=== PATIENT | male | born 1970 | race American Indian/Alaskan Native ===

== ENCOUNTER 2016-08-26 16:06 | Emergency (ER) | payer MEDICARE ==
[2016-08-26] MEDS ORDERED: CATAPRES PO ONE ×2 (16:44→16:51)
--- NOTE | 2016-08-26 19:50 | Emergency Department Report ---
HPI - General Chief Complaint: Skin Rash Time Seen by Provider: 08/26/16 19:27 - HPI HPI: Patient is a 46-year-old male presents to ED complaining of the aching and rash on his left upper shoulder back region 2 weeks. Patient states about 2 weeks ago he went fishing. Patient states after returning home he found about 3 ticks on his body. Patient describes take as bad small takes which she removed from his body while he was in the shower. Patient states the other 2 sides were fine but the one on his back as presented aggressively gotten bigger, itches and read. She denies fevers/chills/nausea/vomiting/abdominal pain/chest pain/difficulty breathing or any other problems ED Past Medical Hx - Past Medical History Hx Hypertension: Yes - Surgical History Additional Surgical History: left femur fx/right lower fx - Social History Smoking Status: Never Smoker Substance Use Type: None - Medications Home Medications: Home Medications Medication Instructions Recorded Confirmed Last Taken Type Doxycycline [Vibramycin CAP] 100 mg PO Q12HR #14 capsule 08/26/16 Unknown Rx Triamcinolone 0.5% [Kenalog 0.5% 1 applic TP TID #1 tube 08/26/16 Unknown Rx CREAM] hydrOXYzine HCL [Atarax] 25 mg PO QHS PRN #15 tablet 08/26/16 Unknown Rx predniSONE [Deltasone] 5 mg PO QDAY #4 tab 08/26/16 Unknown Rx ED Review of Systems ROS: Stated complaint: POSSIBLE TICK BITE Other details as noted in HPI Constitutional: denies: chills, fever Eyes: denies: eye pain, eye discharge, vision change ENT: denies: ear pain, throat pain Respiratory: denies: cough, shortness of breath, wheezing Cardiovascular: denies: chest pain, palpitations Endocrine: no symptoms reported Gastrointestinal: denies: abdominal pain, nausea, diarrhea Genitourinary: denies: urgency, dysuria Musculoskeletal: denies: back pain, joint swelling, arthralgia Skin: denies: rash, lesions Neurological: denies: headache, weakness, paresthesias Psychiatric: denies: anxiety, depression Hematological/Lymphatic: denies: easy bleeding, easy bruising Physical Exam - Physical Exam Vital Signs: Vital Signs 08/26/16 08/26/16 16:40 16:50 Temperature 97.9 F Pulse Rate 57 L 57 L Respiratory 18 Rate Blood Pressure 193/118 193/118 O2 Sat by Pulse 100 Oximetry Physical Exam: GENERAL: Alert and oriented x3, no apparent distress, Normal Gait, atraumatic. NOSE: Nose symetrical, Nontender,Nares appeared normal. MOUTH:Mouth is well hydrated and without lesions. Tonsils nonerythematous or swollen, Uvula midline, Tongue not elevated. Mucous membranes are moist. Posterior pharynx clear, no exudate or lesions. Patent airways. NECK: Supple. Non edematous, No carotid bruits. No lymphadenopathy or thyromegaly. No C-spine tenderness LUNGS: Symetrical with respiration, No wheezing, no rales or crackles, CTAB. HEART: S1, S2 present, regular rate and rhythm without murmur, no rubs, no gallops. ABDOMEN: No organomegaly was noted,Positive bowel sounds, soft, and non- distended. . Nontender to palpation on all Quadrants, NO CVA tenderness. SKIN: Warm and dry, erythematous, raised, 8-10 cm in diameter lesion with the insect bite in the middle of the lesion. Mildly tender to palpation not fluctuant, No other lesions, No ulceration or induration present. ED Course Vital Signs 08/26/16 08/26/16 16:40 16:50 Temperature 97.9 F Pulse Rate 57 L 57 L Respiratory 18 Rate Blood Pressure 193/118 193/118 O2 Sat by Pulse 100 Oximetry ED Medical Decision Making - Medical Decision Making 6-year-old male presents with cellulitis from insect bite ED course: Patient received Benadryl and prednisone EtOH. Discussed the patient home medication of Atarax and prednisone and cortisone topical cream. Discussed to use as prescribed for the next couple days. Discussed to follow up with primary care physician as referred. Vital signs are normal patient is alert and oriented 3 using all distress Patient states he understands instructions given and will follow up as needed Critical care attestation.: If time is entered above; I have spent that time in minutes in the direct care of this critically ill patient, excluding procedure time. ED Disposition Clinical Impression: Insect bite Qualifiers: Encounter type: initial encounter Qualified Code(s): W57.XXXA - Bitten or stung by nonvenomous insect and other nonvenomous arthropods, initial encounter Cellulitis Qualifiers: Site of cellulitis: trunk Site of cellulitis of trunk: back Qualified Code(s): L03.312 - Cellulitis of back [any part except buttock] Disposition: DISCHARGED TO HOME OR SELFCARE Is pt being admited?: No Does the pt Need Aspirin: No Condition: Stable Instructions: Insect Bite or Sting (ED), Cellulitis (ED) Prescriptions: hydrOXYzine HCL [Atarax] 25 mg PO QHS PRN #15 tablet PRN Reason: Itching Doxycycline [Vibramycin CAP] 100 mg PO Q12HR #14 capsule predniSONE [Deltasone] 5 mg PO QDAY #4 tab Triamcinolone 0.5% [Kenalog 0.5% CREAM] 1 applic TP TID #1 tube Referrals: PRIMARY CARE, [Primary Care Provider] - 3-[address] [facility] [Outside] - 3-5 Days [facility] [Outside] - 3-5 Days [facility] [Outside] - 3-5 Days Forms: Accompanied Note, Work/School Release Form(ED) Time of Disposition: 20:21
[2016-08-26] MEDS ORDERED: BENADRYL PO ONE (19:51)
[2016-08-26] MEDS ORDERED: DELTASONE PO ONE (19:51)
[2016-08-27 03:35] VITALS: BP 195/108
== END 2016-08-26 20:30 | disposition home or self-care (01) ==
LOC: ED 16:06
DX: L03.312 Cellulitis of back [any part except buttock and flank] (principal); I10 Essential (primary) hypertension; Z98.890 Other specified postprocedural states; W57.XXXA Bitten or stung by nonvenomous insect and other nonvenomous arthropods, initial encounter; Y93.89 Activity, other specified; Y99.8 Other external cause status; Y92.89 Other specified places as the place of occurrence of the external cause
CPT/HCPCS: 99282; J7512

== ENCOUNTER 2018-05-30 12:15 | Emergency (ER) | payer MEDICARE ==
--- NOTE | 2018-05-30 12:38 | Emergency Department Report ---
Blank Doc - Documentation Documentation: 48 y o Male returns to ED with continued elevated pressure , weakness, vommitin g,dizziness, pmh of HTN stefanie cabrera notified pt to be roomed labs from this am- wnl CT scan- wnl MD reassess. HTN EM
[2018-05-30] MEDS ORDERED: CATAPRES PO ONE (12:51)
[2018-05-30] MEDS ORDERED: SUBLIMAZE IV ONE (12:52)
[2018-05-30] MEDS ORDERED: ZOFRAN IV ONE (12:52)
--- NOTE | 2018-05-30 12:56 | Emergency Department Report ---
HPI - General Chief Complaint: High BP Time Seen by Provider: 05/30/18 12:32 - HPI HPI: Room 17 The patient is a 48-year-old male presenting with chief complaint headache and hypertension. The patient states his symptoms began yesterday with headache, d izziness weakness nausea and vomiting. Patient's checked his blood pressure almost felt to be hypertensive at 215/132. The patient came to this ED yesterday and had blood work and head CT performed which was negative. Patient states he felt improved at the blood pressure was controlled in the ED and was discharged home. The patient states he went home and went to sleep and around 09:00 the symptoms had returned. The patient again complained of a severe headache given it is score of 8/10, feeling dizzy with nausea and vomiting Location: [See above] Duration: [See above] Quality: Dizziness, headache Severity: 8/10 Modifying factors: [see above] Context: [see above] Mode of transportation: [not driving] ED Past Medical Hx - Past Medical History Hx Hypertension: Yes - Surgical History Additional Surgical History: left femur fx/right lower fx - Family History Family history: no significant - Social History Smoking Status: Never Smoker Substance Use Type: None (denies illicit drug use) - Medications Home Medications: Home Medications Medication Instructions Recorded Confirmed Last Taken Type Doxycycline [Vibramycin CAP] 100 mg PO Q12HR #14 capsule 08/26/16 Unknown Rx Triamcinolone 0.5% [Kenalog 0.5% 1 applic TP TID #1 tube 08/26/16 Unknown Rx CREAM] hydrOXYzine HCL [Atarax] 25 mg PO QHS PRN #15 tablet 08/26/16 Unknown Rx predniSONE [Deltasone] 5 mg PO QDAY #4 tab 08/26/16 Unknown Rx Ibuprofen [Motrin] 600 mg PO Q8H PRN #20 tablet 05/30/18 Unknown Rx Ondansetron [Zofran Odt] 4 mg PO Q8HR PRN #10 tab.rapdis 05/30/18 Unknown Rx amLODIPine [Norvasc] 10 mg PO DAILY #30 tab 05/30/18 Unknown Rx traMADol [Ultram] 50 mg PO Q6HR PRN #10 tablet 05/30/18 Unknown Rx ED Review of Systems ROS: Stated complaint: HBP Other details as noted in HPI Constitutional: no symptoms reported Eyes: denies: eye pain ENT: denies: ear pain Respiratory: no symptoms reported Cardiovascular: denies: chest pain Endocrine: no symptoms reported Gastrointestinal: nausea, vomiting Genitourinary: denies: dysuria Musculoskeletal: denies: back pain Neurological: headache Physical Exam - Physical Exam Vital Signs: Vital Signs 05/30/18 12:32 Temperature 99.4 F Pulse Rate 92 H Respiratory 18 Rate Blood Pressure 216/120 O2 Sat by Pulse 98 Oximetry Physical Exam: GENERAL: The patient is well-developed well-nourished male lying on stretcher and appearing to be in acute distress. [] HEENT: Normocephalic. Atraumatic. Extraocular motions are intact. Patient has moist mucous membranes. NECK: Supple. Trachea midline CHEST/LUNGS: Clear to auscultation. There is no respiratory distress noted. HEART/CARDIOVASCULAR: Regular. There is no tachycardia. There is no gallop rub or murmur. ABDOMEN: Abdomen is soft, nontender. Patient has normal bowel sounds. There is no abdominal distention. SKIN: There is no rash. There is no edema. There is no diaphoresis. NEURO: The patient is awake, alert, and oriented. The patient is cooperative. The patient has no focal neurologic deficits. The patient has normal speech and gait. Cranial nerves II through XII grossly intact, no drift MUSCULOSKELETAL:There is no evidence of acute injury. ED Course Vital Signs 05/30/18 12:32 Temperature 99.4 F Pulse Rate 92 H Respiratory 18 Rate Blood Pressure 216/120 O2 Sat by Pulse 98 Oximetry ED Medical Decision Making - Lab Data Result diagrams: 05/30/18 12:56 - Radiology Data Radiology results: report reviewed (CT head), image reviewed (CT head) [facility] [address] [place] [address] Cat Scan Report Signed Patient: VALDEMAR HOLLOWAY MR#: [id number] : 1970 Acct:[id number] Age/Sex: 48 / M ADM Date: 05/30/18 Loc: ED Attending Dr: Ordering Physician: ADEBAYO PEMBERTON MD Date of Service: 05/30/18 Procedure(s): CT angio head Accession Number(s): [id number] cc: ADEBAYO PEMBERTON MD CTA HEAD: HISTORY: Hypertension, headache, dizziness. TECHNIQUE: Helical CT images after IV contrast with 0.625mm reformations. Sagittal and coronal reformats. Rotational MIP images. 3D volume rendering technique. FINDINGS: The arterial structures of the anterior and posterior circulations are patent throughout. No evidence for stenosis, occlusion or aneurysm. IMPRESSION: Unremarkable CTA head. Transcribed By: TTR Dictated By: TRUE SANTA JR, MD Electronically Authenticated By: TRUE SANTA JR, MD Signed Date/Time: 05/30/181426 DD/ 26 TD/TT: 05/30/181426 - Differential Diagnosis hypertensive urgency, intracranial hemorrhage, cerebral aneurysm Critical care attestation.: If time is entered above; I have spent that time in minutes in the direct care of this critically ill patient, excluding procedure time. ED Disposition Clinical Impression: Hypertensive urgency, Headache Disposition: OP ADMIT IP TO THIS HOSP Is pt being admited?: Yes Does the pt Need Aspirin: No Condition: Fair Time of Disposition: 14:46 (hospitalist paged (Dr Martins))
[2018-05-30 13:25] LABS: Alanine Aminotransferase 81 units/L (7-56); Albumin 4.9 g/dL (3.9-5); BUN/Creatinine Ratio 10; Blood Urea Nitrogen 12 mg/dL (9-20); Calcium 9.6 mg/dL (8.4-10.2); Hemolysis Index 19
[2018-05-30] MEDS ORDERED: NACL 0.9% 50 ML ONE (13:27)
[2018-05-30] MEDS ORDERED: NORMODYNE IV ONE ×2 (14:14→14:41)
--- NOTE | 2018-05-30 14:31 | Cat Scan Report ---
CTA HEAD: HISTORY: Hypertension, headache, dizziness. TECHNIQUE: Helical CT images after IV contrast with 0.625mm reformations. Sagittal and coronal reformats. Rotational MIP images. 3D volume rendering technique. FINDINGS: The arterial structures of the anterior and posterior circulations are patent throughout. No evidence for stenosis, occlusion or aneurysm. IMPRESSION: Unremarkable CTA head.
--- NOTE | 2018-05-30 15:12 | Event Note ---
Date: 05/30/18 Patient seen for Uncontrolled HTN BP 150/91 during my exam No sequelae of HTN like dizziness blurred vision etc or weakness Patient is on Amlodipine 10 mg po qd which was prescibed this am Add losartan 100 mg po qd Coreg 6.25 q12 F/u with pcp
[2018-05-30] MEDS ORDERED: ZOFRAN IM PRN (15:43)
[2018-05-30] MEDS ORDERED: DILAUDID IM PRN (15:43)
[2018-05-30] MEDS ORDERED: DILAUDID ONE (15:46)
[2018-05-30] MEDS ORDERED: ZOFRAN ONE (15:46)
[2018-05-30 16:53] VITALS: BP 152/91
== END 2018-05-30 16:54 | disposition admitted as inpatient to this hospital (09) ==
LOC: ED 12:15
DX: I16.0 Hypertensive urgency (principal); I10 Essential (primary) hypertension
CPT/HCPCS: 36415; 70496; 80053; 96372; 96374; 96375; 99284; J1170; J2405; J3010; Q9967

== ENCOUNTER 2018-09-01 10:34 | Emergency (ER) | payer MEDICARE ==
[2018-09-01 12:09] LABS: Basophils % (Auto) 0.4 % (0.0-1.8); Eosinophils % (Auto) 0.1 % (0.0-4.3); Hematocrit 42.3 % (35.5-45.6); Hemoglobin 15.1 gm/dl (11.8-15.2); Lymphocytes # (Auto) 0.8 K/mm3 (1.2-5.4); Lymphocytes % (Auto) 8.7 % (13.4-35.0); Mean Corpuscular HGB Conc 36 % (32-34); Mean Corpuscular Volume 91 fl (84-94); Monocytes # (Auto) 0.9 K/mm3 (0.0-0.8); Monocytes % (Auto) 9.9 % (0.0-7.3); Platelet Count 123 K/mm3 (140-440); Red Blood Count 4.66 M/mm3 (3.65-5.03); Red Cell Distribution Width 14.4 % (13.2-15.2)
[2018-09-01 12:24] LABS: Alanine Aminotransferase 28 units/L (7-56); Albumin 4.3 g/dL (3.9-5); BUN/Creatinine Ratio 10; Blood Urea Nitrogen 12 mg/dL (9-20); Calcium 9.1 mg/dL (8.4-10.2); Hemolysis Index 26
[2018-09-01 12:45] LABS: Bilirubin,Direct < 0.2 mg/dL (0-0.2)
[2018-09-01] MEDS ORDERED: NACL 0.9% 1000 ML 1,000 ML IV ONE (12:47)
[2018-09-01] MEDS ORDERED: ZOFRAN IV ONE (12:47)
[2018-09-01] MEDS ORDERED: MORPHINE IV ONE (12:47)
--- NOTE | 2018-09-01 13:05 | Emergency Department Report ---
ED Abdominal Pain HPI - General Chief Complaint: Abdominal Pain Stated Complaint: DIZZINESS/VOMITING/HBP/ABD PAIN Time Seen by Provider: 09/01/18 11:33 Source: patient Mode of arrival: Ambulatory Limitations: No Limitations - History of Present Illness Initial Comments: This is a 48-year-old male nontoxic, well nourished in appearance, no acute signs of distress presents to the ED with c/o of nausea and vomiting and abdominal 3 days. Patient describes vomiting as food content and yellow gastric acid. Patient describes abdominal pain as cramping and aching with level of 3/10 diffuse. Patient denies chest pain, short of breath, fever, chills, headache, stiff neck, numbness or tingling. Patient denies any diarrhea or constipation. Patient denies any recent travels. Patient denies any allergies. Hx of HTN which he agrees to taking medications and following a PCP. MD Complaint: abdominal pain -: days(s) (3) Location: diffuse Radiation: none Migration to: no migration Severity: mild Severity scale (0 -10): 8 Quality: aching Consistency: constant Improves With: nothing Worsens With: nothing Associated Symptoms: nausea, vomiting. denies: diarrhea, fever, chills, constipation, dysuria, hematemesis, hematochezia, melena, hematuria, anorexia, syncope - Related Data Previous Rx's Medication Instructions Recorded Last Taken Type DOXYCYCLINE Hyclate [Vibramycin 100 mg PO Q12HR #14 capsule 08/26/16 Unknown Rx CAP] Triamcinolone 0.5% [Kenalog 0.5% 1 applic TP TID #1 tube 08/26/16 Unknown Rx CREAM] hydrOXYzine HCL [Atarax] 25 mg PO QHS PRN #15 tablet 08/26/16 Unknown Rx predniSONE [Deltasone] 5 mg PO QDAY #4 tab 08/26/16 Unknown Rx Carvedilol [Coreg] 6.25 mg PO BID #60 tablet 05/30/18 Unknown Rx Ibuprofen [Motrin] 600 mg PO Q8H PRN #20 tablet 05/30/18 Unknown Rx Losartan [Cozaar] 100 mg PO QDAY #30 tablet 05/30/18 Unknown Rx Ondansetron [Zofran Odt] 4 mg PO Q8HR PRN #10 tab.rapdis 05/30/18 Unknown Rx amLODIPine [Norvasc] 10 mg PO DAILY #30 tab 05/30/18 Unknown Rx traMADol [Ultram] 50 mg PO Q6HR PRN #10 tablet 05/30/18 Unknown Rx Ibuprofen [Motrin] 600 mg PO Q8H PRN #20 tablet 09/01/18 Unknown Rx Prednisone [predniSONE 10 mg 10 mg PO .TAPER #1 tab.ds.pk 09/01/18 Unknown Rx (6-Day Pack, 21 Tabs)] levoFLOXacin [Levaquin TAB] 750 mg PO QDAY #14 tablet 09/01/18 Unknown Rx Allergies Allergy/AdvReac Type Severity Reaction Status Date / Time No Known Allergies Allergy Verified 09/01/18 10:38 ED Review of Systems ROS: Stated complaint: DIZZINESS/VOMITING/HBP/ABD PAIN Other details as noted in HPI Constitutional: denies: chills, fever Eyes: denies: eye pain, eye discharge, vision change ENT: denies: ear pain, throat pain Respiratory: denies: cough, shortness of breath, wheezing Cardiovascular: denies: chest pain, palpitations Endocrine: no symptoms reported Gastrointestinal: abdominal pain, nausea, vomiting. denies: diarrhea Genitourinary: denies: urgency, dysuria Musculoskeletal: denies: back pain, joint swelling, arthralgia Skin: denies: rash, lesions Neurological: denies: headache, weakness, paresthesias Psychiatric: denies: anxiety, depression Hematological/Lymphatic: denies: easy bleeding, easy bruising ED Past Medical Hx - Past Medical History Hx Hypertension: Yes Hx CVA: No Hx Heart Attack/AMI: No Hx Congestive Heart Failure: No Hx Diabetes: No Hx Deep Vein Thrombosis: No Hx Pulmonary Embolism: No Hx GERD: No Hx Liver Disease: No Hx Renal Disease: No Hx Sickle Cell Disease: No Hx Arthritis: No Hx Headaches / Migraines: No Hx Seizures: No Hx Kidney Stones: No Hx Psychiatric Treatment: No Hx Asthma: No Hx COPD: No Hx Tuberculosis: No Hx Dementia: No Hx HIV: No - Surgical History Hx Coronary Stent: No Hx Open Heart Surgery: No Hx Pacemaker: No Hx Internal Defibrillator: No Hx Cholecystectomy: No Hx Appendectomy: No Hx Breast Surgery: No Additional Surgical History: left femur fx/right lower fx - Social History Smoking Status: Never Smoker Substance Use Type: Marijuana - Medications Home Medications: Home Medications Medication Instructions Recorded Confirmed Last Taken Type DOXYCYCLINE Hyclate [Vibramycin 100 mg PO Q12HR #14 capsule 08/26/16 Unknown Rx CAP] Triamcinolone 0.5% [Kenalog 0.5% 1 applic TP TID #1 tube 08/26/16 Unknown Rx CREAM] hydrOXYzine HCL [Atarax] 25 mg PO QHS PRN #15 tablet 08/26/16 Unknown Rx predniSONE [Deltasone] 5 mg PO QDAY #4 tab 08/26/16 Unknown Rx Carvedilol [Coreg] 6.25 mg PO BID #60 tablet 05/30/18 Unknown Rx Ibuprofen [Motrin] 600 mg PO Q8H PRN #20 tablet 05/30/18 Unknown Rx Losartan [Cozaar] 100 mg PO QDAY #30 tablet 05/30/18 Unknown Rx Ondansetron [Zofran Odt] 4 mg PO Q8HR PRN #10 tab.rapdis 05/30/18 Unknown Rx amLODIPine [Norvasc] 10 mg PO DAILY #30 tab 05/30/18 Unknown Rx traMADol [Ultram] 50 mg PO Q6HR PRN #10 tablet 05/30/18 Unknown Rx Ibuprofen [Motrin] 600 mg PO Q8H PRN #20 tablet 09/01/18 Unknown Rx Prednisone [predniSONE 10 mg 10 mg PO .TAPER #1 tab.ds.pk 09/01/18 Unknown Rx (6-Day Pack, 21 Tabs)] levoFLOXacin [Levaquin TAB] 750 mg PO QDAY #14 tablet 09/01/18 Unknown Rx ED Physical Exam - General Limitations: No Limitations General appearance: alert, in no apparent distress - Head Head exam: Present: atraumatic, normocephalic - Eye Eye exam: Present: normal appearance, PERRL, EOMI - Neck Neck exam: Present: normal inspection, full ROM. Absent: tenderness, meningismus, lymphadenopathy - Respiratory Respiratory exam: Present: normal lung sounds bilaterally. Absent: respiratory distress, wheezes, rales, rhonchi, stridor, chest wall tenderness, accessory muscle use, decreased breath sounds, prolonged expiratory - Cardiovascular Cardiovascular Exam: Present: regular rate, normal rhythm, normal heart sounds. Absent: bradycardia, tachycardia, irregular rhythm, systolic murmur, diastolic murmur, rubs, gallop - GI/Abdominal GI/Abdominal exam: Present: soft, tenderness (diffuse), normal bowel sounds. Absent: distended, guarding, rebound, rigid, diminished bowel sounds - Expanded GI/Abdominal Exam Expanded GI/Abdominal exam: Absent: psoas sign, Nowak's sign, Rovsing's sign, tenderness at Mcburney's Point, ascites - Rectal Rectal exam: Present: deferred - Extremities Exam Extremities exam: Present: normal inspection, full ROM, normal capillary refill - Back Exam Back exam: Present: normal inspection, full ROM. Absent: tenderness, CVA tenderness (R), CVA tenderness (L), muscle spasm, paraspinal tenderness, vertebral tenderness, rash noted - Neurological Exam Neurological exam: Present: alert, oriented X3, normal gait - Psychiatric Psychiatric exam: Present: normal affect, normal mood - Skin Skin exam: Present: warm, dry, intact, normal color. Absent: rash ED Course Vital Signs 09/01/18 09/01/18 09/01/18 10:38 13:59 14:01 Temperature 99.7 F H 102.7 F H Pulse Rate 70 68 Respiratory 18 Rate Blood Pressure 170/95 169/96 O2 Sat by Pulse 97 94 Oximetry 09/01/18 14:05 Temperature Pulse Rate Respiratory 18 Rate Blood Pressure O2 Sat by Pulse Oximetry - Reevaluation(s) Reevaluation #1: 09/01/18 13:32 Patient is speaking in full sentences with no signs of distress noted. ED Medical Decision Making - Lab Data Result diagrams: 09/01/18 11:53 09/01/18 11:53 - Medical Decision Making This is a 48-year-old male that presents with abdominal pain, PNA, and UTI. Patient is stable and was examined by me. There is no abdominal tenderness. Negative signs of symptoms of appendicitis. Labs obtained. UA obtained. Patient received 2g Rocephine and 1G Azith in the ED for UTI and PNA. CT of abdomen obtained and dictated by the radiologist. Patient is notified of the report with no questions noted by the patient. Vital signs are stable prior to discharge. Patient received medical treatment in the ED which patient stated symptoms has resovled and subsided. Was instructed note to operate any machinery due to possible drowsiness and stated someone will drive the patient home. A by mouth challenge has been obtained and patient tolerated well with no nausea vomiting. Patient was notified of strict precatuions of appendictis symptoms and to return to the ED if symptoms occurs as soon as possible. Patient was also instructed to Follow-up with a primary care doctor in 3-5 days or if symptoms worsen and co ntinue return to emergency room as soon as possible. At time of discharge, the patient does not seem toxic or ill in appearance. No acute signs of distress noted. Patient agrees to discharge treatment plan of care. No further questions noted by the patient. Critical care attestation.: If time is entered above; I have spent that time in minutes in the direct care of this critically ill patient, excluding procedure time. ED Disposition Clinical Impression: UTI (urinary tract infection) Qualifiers: Urinary tract infection type: acute cystitis Hematuria presence: without hem aturia Qualified Code(s): N30.00 - Acute cystitis without hematuria PNA (pneumonia) Qualifiers: Pneumonia type: due to unspecified organism Laterality: left Abdominal pain Qualifiers: Abdominal location: generalized Qualified Code(s): R10.84 - Generalized abdominal pain Disposition: TO HOME OR SELFCARE Is pt being admited?: No Does the pt Need Aspirin: No Condition: Stable Instructions: Bacterial Pneumonia (ED), Acute Abdominal Pain (ED) Additional Instructions: Follow-up with a primary care doctor in 3-5 days or if symptoms worsen and continue return to emergency room as soon as possible. Prescriptions: levoFLOXacin [Levaquin TAB] 750 mg PO QDAY #14 tablet Ibuprofen [Motrin] 600 mg PO Q8H PRN #20 tablet PRN Reason: Pain/Fever Prednisone [predniSONE 10 mg (6-Day Pack, 21 Tabs)] 10 mg PO .TAPER #1 tab.ds.pk Referrals: VIRGIE YARBROUGH MD [Primary Care Provider] - 3-5 Days PRIMARY CAREMD [Referring] - 3-5 Days POLINA MARTINEZ MD [Staff Physician] - 3-5 Days [facility] [Outside] - 3-5 Days [facility] [Outside] - 3-5 Days Forms: Work/School Release Form(ED)
[2018-09-01] MEDS ORDERED: IBUPROFEN PO ONE (14:00)
[2018-09-01 14:31] LABS: Bilirubin,Urine NEG (Negative); Blood,Urine NEG (Negative); Color,Urine Yellow (Yellow); Mucus,Urine FEW /HPF; Protein,Urine <15 mg/dL mg/dL (Negative); Urobilinogen,Urine < 2.0 mg/dL (<2.0)
[2018-09-01] MEDS ORDERED: ZITHROMAX PO ONE (14:46)
[2018-09-01] MEDS ORDERED: XYLOCAINE 1% MPF 5 mL INFILTRATI ONE ×2 (14:46→15:53)
[2018-09-01] MEDS ORDERED: ROCEPHIN IM ONE ×2 (14:46→17:00)
--- NOTE | 2018-09-01 15:52 | Cat Scan Report ---
PROCEDURE: CT ABDOMEN PELVIS W CON TECHNIQUE: Computerized axial tomography of the abdomen and pelvis was performed after the IV inject ion of iodinated nonionic contrast. CT DOSE LENGTH PRODUCT: 2781.2 mGycm HISTORY: abd pain COMPARISONS: None . FINDINGS: Visualized lower thorax: There is airspace consolidation the left lower lobe, with air bronchograms. Findings are compatible with pneumonia. Liver: Fatty infiltration of liver. There is focal fatty sparing near the gallbladder fossa Spleen: Normal size and attenuation. Gallbladder and biliary system: Normal. Pancreas: Normal. Adrenals: Normal. Kidneys: Normal. GI tract: Mild to moderate volume of stool seen in the colon. Appendix is visualized and does not ap pear inflamed. No bowel obstruction or inflammation . Lymph nodes and mesentery: Normal. Vasculature: Normal.. Bladder: Normal. Reproductive organs: Normal. Peritoneum: There is a small amount of free fluid in the pelvis. Musculoskeletal structures: There is hardware in the proximal left femur. There are degenerative disc changes at L3-4. Other: None . IMPRESSION: Left lower lobe airspace infiltrate is compatible with pneumonia . Fatty infiltration of the liver This document is electronically signed by Jaylin Tran MD., Sep 01 2018 03:50:12 PM ET
[2018-09-01] MEDS ORDERED: ROCEPHIN/NS 2 GM/100 ML 2 GM/100 ML BAG IV ONE (17:00)
[2018-09-01 17:29] VITALS: BP 160/73
[2018-09-01] MEDS ORDERED: ZITHROMAX ONE ×2 (17:49→17:53)
[2018-09-02] MEDS ORDERED: ZOFRAN ONE (13:40)
[2018-09-02] MEDS ORDERED: REGLAN ONE (15:00)
[2018-09-02] MEDS ORDERED: APRESOLINE ONE (15:00)
== END 2018-09-01 17:56 | disposition home or self-care (01) ==
LOC: ED 10:34
DX: N30.00 Acute cystitis without hematuria (principal); N39.0 Urinary tract infection, site not specified; J18.9 Pneumonia, unspecified organism; I10 Essential (primary) hypertension; F12.10 Cannabis abuse, uncomplicated
CPT/HCPCS: 36415; 74177; 80048; 80076; 81001; 83690; 85025; 96361; 96365; 96375; 99284; J0696; J2270; J2405; J7030; Q9967; J0360; J2765

== ENCOUNTER 2018-09-02 06:28 | Inpatient (IN) | payer MEDICARE ==
[2018-09-02] MEDS ORDERED: NACL 0.9% 500 ML 500 ML IV ONE (08:30)
[2018-09-02] MEDS ORDERED: LEVAQUIN 750MG/150ML 750 MG/150 ML BAG IV ONE (08:34)
[2018-09-02] MEDS ORDERED: ZOFRAN IV ONE (08:37)
[2018-09-02] MEDS ORDERED: TYLENOL PO ONE (08:38)
[2018-09-02] MEDS ORDERED: ZOSYN/NS 4.5GM/100ML 4.5 GM/100 ML VIAL IV ONE (08:39)
--- NOTE | 2018-09-02 09:26 | XRay Report ---
AP CHEST: HISTORY: Possible sepsis Subtle lingular or left lower lobe infiltrate is identified. The remainder of the lungs are clear. No pleural effusion or pneumothorax. Normal heart and mediastinal structures. IMPRESSION: Left lung infiltrate consistent with pneumonia.
[2018-09-02 09:56] LABS: INR 1.15 (0.87-1.13)
[2018-09-02 09:57] LABS: Partial Thromboplastin Time 25.4 Sec. (24.2-36.6)
[2018-09-02 09:59] LABS: Alanine Aminotransferase 35 units/L (7-56); Albumin 4.1 g/dL (3.9-5); BUN/Creatinine Ratio 15; Bilirubin,Direct 0.2 mg/dL (0-0.2); Blood Urea Nitrogen 15 mg/dL (9-20); Calcium 9.1 mg/dL (8.4-10.2); Hemolysis Index 20
[2018-09-02 10:21] LABS: Bilirubin,Urine NEG (Negative); Blood,Urine SM (Negative); Color,Urine Yellow (Yellow); Urobilinogen,Urine < 2.0 mg/dL (<2.0)
--- NOTE | 2018-09-02 10:27 | Emergency Department Report ---
ED General Adult HPI - General Chief complaint: Dizziness Stated complaint: VOMITING, HIGH BP,FEVER, DIZZINESS Time Seen by Provider: 09/02/18 08:29 Source: patient, family Mode of arrival: Ambulatory Limitations: No Limitations - History of Present Illness Initial comments: This is a 48-year-old man who has had a febrile illness since Sunday. He states that his only symptom as far as pain goes has been headache. He complains of pain by frontotemporal headache with sometimes goes to the vertex of his head. He states that he has had fever and chills recurrently since Sunday. He has been to this emergency department prior. He denies any abdominal pain or urinary symptoms. He likewise denies cough or difficulty in breathing. He's had no diarrhea. He states that despite the prescription of medication yesterday to include 2 g of Rocephin and 1 g of azithromycin as well as a prescription for Levaquin he is still having fever and chills. He's had no chest pain. He was told yesterday that he has a pneumonia and a urinary tract infection. I am not exactly sure why a CT of the abdomen and pelvis was done yesterday. However, it did reveal a consolidating left lower lobe pneumonia. He was discharged with a prescription for Levaquin. Patient denies any history of serious bacterial infection. He has a history of hypertension and says he has been compliant with his medicines. -: Gradual, days(s) Location: head Radiation: non-radiation Severity scale (0 -10): 0 Quality: aching Improves with: none Worsens with: none Associated Symptoms: fever/chills, other (vomiting) Treatments Prior to Arrival: other (ER visits) - Related Data Previous Rx's Medication Instructions Recorded Last Taken Type DOXYCYCLINE Hyclate [Vibramycin 100 mg PO Q12HR #14 capsule 08/26/16 Unknown Rx CAP] Carvedilol [Coreg] 6.25 mg PO BID #60 tablet 05/30/18 Unknown Rx Ibuprofen [Motrin] 600 mg PO Q8H PRN #20 tablet 05/30/18 Unknown Rx Losartan [Cozaar] 100 mg PO QDAY #30 tablet 05/30/18 Unknown Rx amLODIPine [Norvasc] 10 mg PO DAILY #30 tab 05/30/18 Unknown Rx Ibuprofen [Motrin] 600 mg PO Q8H PRN #20 tablet 09/01/18 Unknown Rx Prednisone [predniSONE 10 mg 10 mg PO .TAPER #1 tab.ds.pk 09/01/18 Unknown Rx (6-Day Pack, 21 Tabs)] Allergies Allergy/AdvReac Type Severity Reaction Status Date / Time No Known Allergies Allergy Verified 09/01/18 10:38 ED Review of Systems ROS: Stated complaint: VOMITING, HIGH BP,FEVER, DIZZINESS Other details as noted in HPI Constitutional: chills, fever Eyes: denies: eye pain, eye discharge, vision change ENT: denies: ear pain, throat pain Respiratory: denies: cough, shortness of breath, wheezing Cardiovascular: denies: chest pain, palpitations Endocrine: no symptoms reported Gastrointestinal: nausea, vomiting. denies: abdominal pain, diarrhea Genitourinary: denies: urgency, dysuria Musculoskeletal: denies: back pain, joint swelling, arthralgia Skin: denies: rash, lesions Neurological: headache. denies: weakness, paresthesias Psychiatric: denies: anxiety, depression Hematological/Lymphatic: denies: easy bleeding, easy bruising ED Past Medical Hx - Past Medical History Previous Medical History?: Yes Hx Hypertension: Yes Hx CVA: No Hx Heart Attack/AMI: No Hx Congestive Heart Failure: No Hx Diabetes: No Hx Deep Vein Thrombosis: No Hx Pulmonary Embolism: No Hx GERD: No Hx Liver Disease: No Hx Renal Disease: No Hx Sickle Cell Disease: No Hx Arthritis: No Hx Headaches / Migraines: No Hx Seizures: No Hx Kidney Stones: No Hx Psychiatric Treatment: No Hx Asthma: No Hx COPD: No Hx Tuberculosis: No Hx Dementia: No Hx HIV: No - Surgical History Past Surgical History?: Yes Hx Coronary Stent: No Hx Open Heart Surgery: No Hx Pacemaker: No Hx Internal Defibrillator: No Hx Cholecystectomy: No Hx Appendectomy: No Hx Breast Surgery: No Additional Surgical History: left femur fx/right lower fx - Social History Smoking Status: Never Smoker Substance Use Type: Marijuana - Medications Home Medications: Home Medications Medication Instructions Recorded Confirmed Last Taken Type DOXYCYCLINE Hyclate [Vibramycin 100 mg PO Q12HR #14 capsule 08/26/16 Unknown Rx CAP] Carvedilol [Coreg] 6.25 mg PO BID #60 tablet 05/30/18 Unknown Rx Ibuprofen [Motrin] 600 mg PO Q8H PRN #20 tablet 05/30/18 Unknown Rx Losartan [Cozaar] 100 mg PO QDAY #30 tablet 05/30/18 Unknown Rx amLODIPine [Norvasc] 10 mg PO DAILY #30 tab 05/30/18 Unknown Rx Ibuprofen [Motrin] 600 mg PO Q8H PRN #20 tablet 09/01/18 Unknown Rx Prednisone [predniSONE 10 mg 10 mg PO .TAPER #1 tab.ds.pk 09/01/18 Unknown Rx (6-Day Pack, 21 Tabs)] ED Physical Exam - General Limitations: No Limitations General appearance: alert, in no apparent distress - Head Head exam: Present: atraumatic, normocephalic - Eye Eye exam: Present: normal appearance, PERRL, EOMI. Absent: scleral icterus - ENT ENT exam: Present: mucous membranes moist - Neck Neck exam: Present: normal inspection. Absent: tenderness, meningismus - Respiratory Respiratory exam: Present: normal lung sounds bilaterally, other (slightly tachypneic). Absent: respiratory distress - Cardiovascular Cardiovascular Exam: Present: regular rate, normal rhythm. Absent: systolic murmur, diastolic murmur, rubs, gallop - GI/Abdominal GI/Abdominal exam: Present: soft, normal bowel sounds. Absent: distended, tenderness, guarding, rebound, rigid - Rectal Rectal exam: Present: deferred - Extremities Exam Extremities exam: Present: normal inspection - Back Exam Back exam: Present: normal inspection - Neurological Exam Neurological exam: Present: alert, oriented X3, CN II-XII intact. Absent: motor sensory deficit - Psychiatric Psychiatric exam: Present: normal affect, normal mood - Skin Skin exam: Present: warm, dry, intact, normal color. Absent: rash ED Course Vital Signs 09/02/18 09/02/18 09/02/18 06:31 07:41 08:36 Temperature 100.4 F H 100.8 F H 101.2 F H Pulse Rate 81 66 74 Respiratory 18 18 18 Rate Blood Pressure 170/110 Blood Pressure 174/101 174/71 [Right] O2 Sat by Pulse 96 96 100 Oximetry 09/02/18 09/02/18 10:30 13:47 Temperature 98.3 F 98.5 F Pulse Rate 62 82 Respiratory 17 18 Rate Blood Pressure Blood Pressure 165/96 192/100 [Right] O2 Sat by Pulse 100 100 Oximetry - Reevaluation(s) Reevaluation #1: The patient complains of headache vomiting and recurrent fever and chills. His history did not point to a infection nor a pulmonary 1. He is found to have a pneumonia. However I do not think we had adequate information to exclude meningitis. Therefore a lumbar puncture was performed. 09/02/18 14:11 09/02/18 14:13 The CSF cell counts came back with a white cell count of 2 cells and RBC of 1 cell per high power field. This effectively excludes bacterial meningitis. The patient will be admitted to the hospitalist service for further care and evaluation of his illness and treatment of his pneumonia. Reevaluation #2: Patient is admitted by Dr. Denny 09/02/18 14:19 ED Medical Decision Making - Lab Data Result diagrams: 09/02/18 09:53 09/02/18 09:03 Laboratory Results - last 24 hr 09/02/18 09/02/18 09/02/18 09:03 09:03 Unknown PT 15.4 H INR 1.15 H APTT 25.4 Sodium 134 L Potassium 3.5 L Chloride 95.1 L Carbon Dioxide 24 Anion Gap 18 BUN 15 Creatinine 1.0 Estimated GFR > 60 BUN/Creatinine Ratio 15 Glucose 131 H Calcium 9.1 Magnesium 2.00 Total Bilirubin 0.60 Direct Bilirubin 0.2 Indirect Bilirubin 0.4 AST 29 ALT 35 Alkaline Phosphatase 59 Total Creatine Kinase 295 H CK-MB (CK-2) 2.0 CK-MB (CK-2) Rel Index 0.6 NT-Pro-B Natriuret Pep 362.6 Total Protein 7.8 Albumin 4.1 Albumin/Globulin Ratio 1.1 Urine Color Yellow Urine Turbidity Hazy Urine pH 6.0 Ur Specific Raysal 1.023 Urine Protein 30 mg/dl Urine Glucose (UA) Neg Urine Ketones Neg Urine Blood Sm Urine Nitrite Neg Urine Bilirubin Neg Urine Urobilinogen < 2.0 Ur Leukocyte Esterase Tr Urine WBC (Auto) 3.0 Urine RBC (Auto) 3.0 Laboratory Results - last 24 hr 09/02/18 09/02/18 09/02/18 09:03 09:03 09:53 WBC 7.5 RBC 4.66 Hgb 14.3 Hct 41.9 MCV 90 MCH 31 MCHC 34 RDW 14.2 Lymph % (Auto) Food Service Prentiss % (Auto) Food Service Eos % (Auto) Food Service Baso % (Auto) Food Service Lymph # Food Service Prentiss # Food Service Eos # Food Service Baso # Food Service Seg Neutrophils # Food Service PT 15.4 H INR 1.15 H APTT 25.4 VBG pH Sodium 134 L Potassium 3.5 L Chloride 95.1 L Carbon Dioxide 24 Anion Gap 18 BUN 15 Creatinine 1.0 Estimated GFR > 60 BUN/Creatinine Ratio 15 Glucose 131 H Lactic Acid Calcium 9.1 Magnesium 2.00 Total Bilirubin 0.60 Direct Bilirubin 0.2 Indirect Bilirubin 0.4 AST 29 ALT 35 Alkaline Phosphatase 59 Total Creatine Kinase 295 H CK-MB (CK-2) 2.0 CK-MB (CK-2) Rel Index 0.6 NT-Pro-B Natriuret Pep 362.6 Total Protein 7.8 Albumin 4.1 Albumin/Globulin Ratio 1.1 Urine Color Urine Turbidity Urine pH Ur Specific Rays[place] Urine Protein Urine Glucose (UA) Urine Ketones Urine Blood Urine Nitrite Urine Bilirubin Urine Urobilinogen Ur Leukocyte Esterase Urine WBC (Auto) Urine RBC (Auto) 09/02/18 09/02/18 09/02/18 09:53 09:56 Unknown WBC RBC Hgb Hct MCV MCH MCHC RDW Lymph % (Auto) Prentiss % (Auto) Eos % (Auto) Baso % (Auto) Lymph # Prentiss # Eos # Baso # Seg Neutrophils # PT INR APTT VBG pH 7.396 Sodium Potassium Chloride Carbon Dioxide Anion Gap BUN Creatinine Estimated GFR BUN/Creatinine Ratio Glucose Lactic Acid 1.80 Calcium Magnesium Total Bilirubin Direct Bilirubin Indirect Bilirubin AST ALT Alkaline Phosphatase Total Creatine Kinase CK-MB (CK-2) CK-MB (CK-2) Rel Index NT-Pro-B Natriuret Pep Total Protein Albumin Albumin/Globulin Ratio Urine Color Yellow Urine Turbidity Hazy Urine pH 6.0 Ur Specific Raysal 1.023 Urine Protein 30 mg/dl Urine Glucose (UA) Neg Urine Ketones Neg Urine Blood Sm Urine Nitrite Neg Urine Bilirubin Neg Urine Urobilinogen < 2.0 Ur Leukocyte Esterase Tr Urine WBC (Auto) 3.0 Urine RBC (Auto) 3.0 - EKG Data -: EKG Interpreted by Me EKG shows normal: sinus rhythm, axis, intervals, QRS complexes, ST-T waves Rate: normal - EKG Data Interpretation: nonspecific ST-T wave ji - Radiology Data Radiology results: report reviewed (previous CT reviewed. There is a substantial consolidation of left lower lobe seen on the 09/01/2018 CT examin ation of the abdomen and pelvis) Subtle lingular or left lower lobe infiltrate is identified. The remainder of the lungs are clear. No pleural effusion or pneumothorax. Normal heart and mediastinal structures. IMPRESSION: Left lung infiltrate consistent with pneumonia. Critical care attestation.: If time is entered above; I have spent that time in minutes in the direct care of this critically ill patient, excluding procedure time. ED Disposition Clinical Impression: SIRS (systemic inflammatory response syndrome), Thrombocytopenia Pneumonia Qualifiers: Pneumonia type: due to unspecified organism Laterality: left Lung location: lower lobe of lung Qualified Code(s): J18.1 - Lobar pneumonia, unspecified organism Cephalalgia Qualifiers: Headache type: unspecified Headache chronicity pattern: acute headache Intractability: not intractable Qualified Code(s): R51 - Headache Disposition: OP ADMIT IP TO THIS HOSP Is pt being admited?: Yes Does the pt Need Aspirin: No (I will defer the decision to give aspirin to the hospitalist) Condition: Stable Instructions: Bacterial Pneumonia (ED) Referrals: VIRAL WEBER MD [Primary Care Provider] - 3-5 Days Time of Disposition: 14:18
[2018-09-02 10:33] LABS: Hematocrit 41.9 % (35.5-45.6); Hemoglobin 14.3 gm/dl (11.8-15.2); Mean Corpuscular HGB Conc 34 % (32-34); Mean Corpuscular Volume 90 fl (84-94); Red Blood Count 4.66 M/mm3 (3.65-5.03); Red Cell Distribution Width 14.2 % (13.2-15.2)
--- NOTE | 2018-09-02 11:08 | Cat Scan Report ---
CT HEAD WITHOUT CONTRAST: HISTORY: Headache. TECHNIQUE: Sequential 2.5mm CT images. COMPARISON: 05/20/18. FINDINGS: Cerebral Parenchyma: Within normal limits. Cerebellum: Within normal limits. Brainstem: Within normal limits. Ventricles: Normal. Sella: Normal. Extra-axial spaces: Normal. Basal Cisterns: Normal. Intracranial Hemorrhage: None. Midline Shift: None. Calvarium: Normal. Sinuses: Normal. Mastoid Air Cells: Normal. Visualized Orbits: Normal. IMPRESSION: Cranial CT scan within normal limits.
[2018-09-02 11:48] LABS: Band Neutrophils # (Manual) 0.2 K/mm3; Basophils % (Manual) 0 % (0.0-1.8); Eosinophils % (Manual) 0 % (0.0-4.3); Total Cells Counted 100
[2018-09-02 11:49] LABS: Large Platelets 2+; RBC Morphology Normal
[2018-09-02 11:50] LABS: Platelet Count 124 K/mm3 (140-440); Platelet Estimate Consistent w Auto
--- NOTE | 2018-09-02 12:18 | History and Physical Report ---
History of Present Illness Chief complaint: I feel bad History of present illness: 48 YO Male with HTN presents to ED for evaluation. Pt states that he has experienced a frontotemporal headache and fever over the past 3 days. Pt seen in ED and discharged on 09/01 with oral antibiotic and steroid therapy for Pneumonia/Bronchitis. Pt returns to ED for reevaluation today. Pt states that he has experienced persistent headache, and fever. Pt transported to [facility] via private vehicle. Pt seen and evaluated in ED and found to have fever to 102.7 consistent with SIRS, hypertensive urgency. Pt denies shaking chills, CP, Palp itations, diarrhea, Trauma, BRBPR, ingestion of food/water from new/different sources, recent foreign travel, known ill contacts, unilateral leg swelling, calf pain, syncope, productive cough, syncope, skin rash, insect bites, or vision changes. Pt admitted to medical floor. ID consulted in ED. Pt initiated on IV antibiotic therapy as well as antiviral therapy. Past History Past Medical History: hypertension Past Surgical History: Other (Leg surgery) Social history: single. denies: smoking, alcohol abuse, prescription drug abuse, IV drug use Family history: no significant family history (reviewed) Medications and Allergies Allergies Allergy/AdvReac Type Severity Reaction Status Date / Time No Known Allergies Allergy Verified 09/01/18 10:38 Home Medications Medication Instructions Recorded Confirmed Last Taken Type DOXYCYCLINE Hyclate [Vibramycin 100 mg PO Q12HR #14 capsule 08/26/16 09/02/18 Unknown Rx CAP] Carvedilol [Coreg] 6.25 mg PO BID #60 tablet 05/30/18 09/02/18 Unknown Rx Ibuprofen [Motrin] 600 mg PO Q8H PRN #20 tablet 05/30/18 09/02/18 Unknown Rx Losartan [Cozaar] 100 mg PO QDAY #30 tablet 05/30/18 09/02/18 Unknown Rx amLODIPine [Norvasc] 10 mg PO DAILY #30 tab 05/30/18 09/02/18 Unknown Rx Ibuprofen [Motrin] 600 mg PO Q8H PRN #20 tablet 09/01/18 09/02/18 Unknown Rx Prednisone [predniSONE 10 mg 10 mg PO .TAPER #1 tab.ds.pk 09/01/18 09/02/18 Unknown Rx (6-Day Pack, 21 Tabs)] Review of Systems Constitutional: fever, malaise, no weight loss, no weight gain, no chills, no sweats, no weakness Ears, nose, mouth and throat: no ear pain, no ear discharge, no tinnitis, no decreased hearing, no nose pain Cardiovascular: no chest pain, no orthopnea, no palpitations, no rapid/irregular heart beat, no edema, no syncope Respiratory: no cough, no cough with sputum, no excessive sputum, no hemoptysis, no shortness of breath Gastrointestinal: no nausea, no vomiting, no diarrhea, no constipation, no bess e in bowel habits Genitourinary Male: no hematuria, no flank pain, no discharge, no urinary frequency, no urinary hesitancy, no nocturia Rectal: no pain, no incontinence, no bleeding Musculoskeletal: no neck stiffness, no neck pain, no shooting arm pain, no arm numbness/tingling, no low back pain, no shooting leg pain Integumentary: no rash, no pruritis, no redness, no sores, no wounds, no jaundic e Neurological: no head injury, no transient paralysis, no paralysis, no weakness, no parathesias, no numbness Psychiatric: no anxiety, no memory loss, no change in sleep habits, no sleep disturbances Endocrine: no cold intolerance, no heat intolerance, no polyphagia, no excessive thirst, no polydipsia, no polyuria Hematologic/Lymphatic: no easy bruising, no easy bleeding, no lymphadenopathy, no lymphedema Allergic/Immunologic: no urticaria, no allergic rhinitis, no persistent infections, no anaphylaxis Exam - Constitutional Vitals: Temp Pulse Resp BP Pulse Ox 98.3 F 62 17 165/96 100 09/02/18 10:30 09/02/18 10:30 09/02/18 10:30 09/02/18 10:30 09/02/18 10:30 General appearance: Present: mild distress - EENT Eyes: Present: PERRL ENT: hearing intact, clear oral mucosa - Neck Neck: Present: supple, normal ROM - Respiratory Respiratory effort: normal Respiratory: bilateral: CTA - Cardiovascular Heart Sounds: Present: S1 & S2. Absent: rub, click - Extremities Extremities: pulses symmetrical, No edema Peripheral Pulses: within normal limits - Abdominal General gastrointestinal: Present: soft, non-tender, non-distended, normal bowel sounds Male genitourinary: Present: normal - Integumentary Integumentary: Present: clear, warm, dry - Musculoskeletal Musculoskeletal: gait normal, strength equal bilaterally - Psychiatric Psychiatric: appropriate mood/affect, intact judgment & insight - Neurologic Neurologic: CNII-XII intact, moves all extremities Results - Labs CBC & Chem 7: 09/02/18 09:53 09/02/18 09:03 Labs: Abnormal lab results 09/02/18 09/02/18 09/02/18 Range/Units 09:03 09:03 09:53 Plt Count 124 L (140-440) K/mm3 Seg Neuts % (Manual) 91.0 H (40.0-70.0) % Lymphocytes % (Manual) 3.0 L (13.4-35.0) % Lymphocytes # (Manual) 0.2 L (1.2-5.4) K/mm3 PT 15.4 H (12.2-14.9) Sec. INR 1.15 H (0.87-1.13) Sodium 134 L (137-145) mmol/L Potassium 3.5 L (3.6-5.0) mmol/L Chloride 95.1 L (98-107) mmol/L Glucose 131 H (75-100) mg/dL Total Creatine Kinase 295 H (55-170) units/L Assessment and Plan - Patient Problems (1) SIRS (systemic inflammatory response syndrome) Current Visit: Yes Status: Acute Plan to address problem: CBC, CMP, chest x ray, urinalysis, ESR, CRP, D dimer, blood cultures. (2) Intermittent FUO Current Visit: Yes Status: Acute Plan to address problem: CBC, CMP, Rapid HIV, ID consulted in ED, Empiric antibiotic therapy, Empiric Acyclovir therapy, Echo , CT head, supportive care, Lumbar Puncture in ED (3) Hypertensive urgency, malignant Current Visit: Yes Status: Acute Plan to address problem: monitor BP q shift, continue medical management, IV hydralazine prn, pain control, (4) DVT prophylaxis Current Visit: Yes Status: Acute Plan to address problem: SCD to BLE while in bed, prophylactic lovenox
[2018-09-02] MEDS ORDERED: ZOFRAN IV PRN (12:35)
[2018-09-02] MEDS ORDERED: PROVENTIL IH PRN (12:35)
[2018-09-02] MEDS ORDERED: SODIUM CHLORIDE FLUSH SYRINGE 10 ML IV PRN (12:35)
[2018-09-02] MEDS ORDERED: ZOFRAN ONE (13:40)
[2018-09-02 13:44] LABS: Total Cells Counted 45 /mm3
[2018-09-02 13:45] LABS: Appearance,CSF Clear; Red Blood Cell,CSF 1 /mm3 (0-0); White Blood Cell,CSF 2 /mm3 (1-10)
[2018-09-02] MEDS: ZOVIRAX 1,000 MG in NACL 0.9% 100 ML IV SCH ×2 (13:48→21:36)
[2018-09-02 14:26] LABS: Glucose,CSF 89 mg/dL
[2018-09-02] MEDS ORDERED: APRESOLINE IV ONE (14:47)
[2018-09-02] MEDS ORDERED: PERCOCET 5/325 PO ONE (14:50)
[2018-09-02] MEDS ORDERED: APRESOLINE ONE (15:00)
[2018-09-02] MEDS ORDERED: REGLAN ONE (15:00)
[2018-09-02] MEDS ORDERED: REGLAN IV ONE (15:12)
[2018-09-02] MEDS ORDERED: ATIVAN IV ONE (15:40)
[2018-09-02] MEDS ORDERED: BENADRYL IV ONE (15:41)
[2018-09-02] MEDS ORDERED: BENADRYL ONE (15:47)
[2018-09-02] MEDS ORDERED: ATIVAN ONE (15:47)
[2018-09-02] MEDS ORDERED: TYLENOL ONE (16:41)
[2018-09-02] MEDS: TYLENOL PO PRN (16:50)
[2018-09-02] MEDS ORDERED: PERCOCET 5/325 PO PRN (17:18)
[2018-09-02] MEDS ORDERED: APRESOLINE IV PRN (17:38)
[2018-09-02] MEDS ORDERED: IBUPROFEN PO PRN (17:41)
[2018-09-02] MEDS: NACL 0.9% 1000 ML 1,000 ML IV SCH (20:37)
[2018-09-02] MEDS: ZOFRAN IV PRN (20:45)
[2018-09-02] MEDS: ROCEPHIN/NS 1 GM/50 ML 1 GM/50 ML BAG IV SCH (20:47)
[2018-09-02] MEDS: COREG PO SCH (22:07)
[2018-09-02] MEDS ORDERED: MORPHINE IV PRN (22:42)
[2018-09-02] MEDS ORDERED: PHENERGAN PR PRN (22:43)
[2018-09-02] MEDS: SODIUM CHLORIDE FLUSH SYRINGE 10 ML IV SCH (23:11)
[2018-09-02] MEDS ORDERED: RESTORIL PO ONE (23:15)
[2018-09-03] MEDS: TYLENOL PO PRN ×2 (04:06→21:23)
[2018-09-03] MEDS: ZOVIRAX 1,000 MG in NACL 0.9% 100 ML IV SCH (06:35)
[2018-09-03 07:50] LABS: Basophils % (Auto) 0.2 % (0.0-1.8); Eosinophils % (Auto) 0.2 % (0.0-4.3); Hemoglobin 13.9 gm/dl (11.8-15.2); Lymphocytes % (Auto) 13.7 % (13.4-35.0); Mean Corpuscular HGB Conc 35 % (32-34); Mean Corpuscular Volume 89 fl (84-94); Monocytes # (Auto) 0.8 K/mm3 (0.0-0.8); Monocytes % (Auto) 12.1 % (0.0-7.3); Red Blood Count 4.49 M/mm3 (3.65-5.03); Red Cell Distribution Width 14.3 % (13.2-15.2)
[2018-09-03 08:14] LABS: Alanine Aminotransferase 53 units/L (7-56); Albumin 3.8 g/dL (3.9-5); BUN/Creatinine Ratio 14; Blood Urea Nitrogen 15 mg/dL (9-20); Calcium 8.6 mg/dL (8.4-10.2); Hemolysis Index 11
[2018-09-03 09:00] LABS: Platelet Count 117 K/mm3 (140-440)
[2018-09-03] MEDS ORDERED: NON-FORMULARY (Losartan [Cozaar] 100 MG) PO SCH (10:00)
[2018-09-03] MEDS: ZOFRAN IV PRN (10:37)
[2018-09-03] MEDS: COREG PO SCH ×2 (10:38→22:40)
[2018-09-03] MEDS: COZAAR PO SCH (10:38)
[2018-09-03] MEDS: NORVASC PO SCH (10:38)
[2018-09-03] MEDS: ROCEPHIN/NS 1 GM/50 ML 1 GM/50 ML BAG IV SCH (10:38)
[2018-09-03] MEDS: SODIUM CHLORIDE FLUSH SYRINGE 10 ML IV SCH ×2 (10:39→22:41)
--- NOTE | 2018-09-03 11:02 | Consultation ---
History of Present Illness - Reason for Consult Consult date: 09/03/18 headache/fever Requesting physician: MILKA TIPTON - History of Present Illness 48 y/o male with history of hypertension admitted on 09/02/2018 due to 3-day history of bitemporal severe headache and fever. Patient reports he came to the ED twice for same symptoms and sent home on oral antibiotic and steroid therapy for Pneumonia/Bronchitis. CT abdomen done in the ED 09/01/2018 showed LLL pneumonia with air bronchograms. Headache is the worse headache of his life and persistent bitemporal 10 of 10. He reports he went to [place], [place] on 08/15/2018 and stayed in a beach house where he was exposed to "bed bugs". He also reports he has been bit by multiple mosquitoes since weather turned hot in [place]. Then he traveled to [place] on 08/24/2018. Denies sick contacts. Reports mild dry minimal cough. In the ED, temp 100.4-101.2, HR 81, R 18, O2 96, BP 170/110. WBC 7.5. Hg 14.3. Plat 124. Creat 1. LFTs neg. CK 295. UA neg. HIV rapid neg. Blood cultures 09/02/2018 no growth so far. Urine cultures 09/02/2018 no growth so far. CT head negative. Underwent lumbar puncture on 09/02/2018 showed wbc 2, glucose 89, protein 39. CXR showed Left lung infiltrate consistent with pneumonia. Review of Systems: General: + fever, + chills, +malaise Cutaneous: no rash, pruritus Head: no headaches or injury Eyes: no changes in vision, eye pain, double vision Ears: no ear pain, ear discharge, ringing or hearing loss Nose: no nose bleeding, stuffiness Mouth & throat: no bleeding gums, no horseness, no dental problems, or swollen glands Neck: no pain, node enlargement/lumps, tyroid enlargement or tenderness Respiratory: +cough, wheezing, sputum, hemoptysis, pleuritic chest pain Cardiovascular: no chest pain, leg edema, cyanosis, MARTINEZ, orthopnea Musculoskeletal: no edema, tenderness and erythema Gastrointestinal: +nausea, no vomiting, no hematemesis, diarrhea, constipation, melena, bright red blood in stools, fecal incontinence, jaundice Genitourinary/Reproductive: no frequent urination, dysuria, hematuria, incontinence Neurogical: +headaches, no seizures, no headaches, no weakness, no paresthesias, no loss of speech or vision; no memory loss, no vertigo, no tremors, no numbness Psychiatric: stable mood; no excessive anxiety, sadness or moodiness Past History Past Medical History: hypertension Past Surgical History: Other (Leg surgery) Social history: single. denies: smoking, alcohol abuse, prescription drug abuse, IV drug use Family history: no significant family history (reviewed) Medications and Allergies Allergies Allergy/AdvReac Type Severity Reaction Status Date / Time No Known Allergies Allergy Verified 09/01/18 10:38 Home Medications Medication Instructions Recorded Confirmed Last Taken Type DOXYCYCLINE Hyclate [Vibramycin 100 mg PO Q12HR #14 capsule 08/26/16 09/02/18 Unknown Rx CAP] Carvedilol [Coreg] 6.25 mg PO BID #60 tablet 05/30/18 09/02/18 Unknown Rx Ibuprofen [Motrin] 600 mg PO Q8H PRN #20 tablet 05/30/18 09/02/18 Unknown Rx Losartan [Cozaar] 100 mg PO QDAY #30 tablet 05/30/18 09/02/18 Unknown Rx amLODIPine [Norvasc] 10 mg PO DAILY #30 tab 05/30/18 09/02/18 Unknown Rx Ibuprofen [Motrin] 600 mg PO Q8H PRN #20 tablet 09/01/18 09/02/18 Unknown Rx Prednisone [predniSONE 10 mg 10 mg PO .TAPER #1 tab.ds.pk 09/01/18 09/02/18 Unknown Rx (6-Day Pack, 21 Tabs)] Active Meds: Active Medications Acetaminophen (Tylenol) 650 mg PO Q4H PRN PRN Reason: Pain MILD(1-3)/Fever >100.5/LING Last Admin: 09/03/18 04:06 Dose: 650 mg Documented by: Albuterol (Proventil) 2.5 mg IH Q4HRT PRN PRN Reason: Shortness Of Breath Amlodipine Besylate (Norvasc) 10 mg PO DAILY [facility] Last Admin: 09/03/18 10:38 Dose: 10 mg Documented by: Carvedilol (Coreg) 6.25 mg PO BID [facility] Last Admin: 09/03/18 10:38 Dose: 6.25 mg Documented by: Enoxaparin Sodium (Lovenox) 40 mg SUB-Q QDAY@2200 KAYLA Hydralazine HCl (Apresoline) 10 mg IV Q6HR PRN PRN Reason: HTN SBP>155 Acyclovir 1,000 mg/ Sodium (Chloride) 120 mls @ 100 mls/hr IV Q8HR [facility]; Protocol Stop: 09/05/18 23:59 Last Admin: 09/03/18 06:35 Dose: 100 mls/hr Documented by: Sodium Chloride (Nacl 0.9% 1000 Ml) 1,000 mls @ 42 mls/hr IV DIRECT KAYLA Last Infusion: 09/02/18 22:48 Dose: 42 mls/hr Documented by: Ceftriaxone Sodium (Rocephin/Ns 1 Gm/50 Ml) 1 gm in 50 mls @ 100 mls/hr IV Q24HR [facility]; Protocol Last Admin: 09/03/18 10:38 Dose: 100 mls/hr Documented by: Ibuprofen (Motrin) 600 mg PO Q8H PRN PRN Reason: Pain Losartan Potassium (Cozaar) 100 mg PO QDAY [facility] Last Admin: 09/03/18 10:38 Dose: 100 mg Documented by: Morphine Sulfate (Morphine) 2 mg IV Q4H PRN PRN Reason: Pain, Moderate (4-6) Stop: 09/03/18 23:59 Last Admin: 09/02/18 23:11 Dose: 2 mg Documented by: Ondansetron HCl (Zofran) 4 mg IV Q6H PRN PRN Reason: Nausea And Vomiting Last Admin: 09/03/18 10:37 Dose: 4 mg Documented by: Oxycodone/Acetaminophen (Percocet 5/325) 1 tab PO Q6H PRN PRN Reason: Pain, Moderate (4-6) Promethazine HCl (Phenergan) 25 mg GA Q6H PRN PRN Reason: Nausea And Vomiting Stop: 09/03/18 23:59 Sodium Chloride (Sodium Chloride Flush Syringe 10 Ml) 10 ml IV BID [facility] Last Admin: 09/03/18 10:39 Dose: 10 ml Documented by: Sodium Chloride (Sodium Chloride Flush Syringe 10 Ml) 10 ml IV PRN PRN PRN Reason: LINE FLUSH Physical Examination - Physical Exam Narrative exam: General appearance: Alert in NAD pleasant Eyes: anicteric sclerae, moist conjunctivae; no lid-lag; PERRLA HENT: Atraumatic; oropharynx clear with moist mucous membranes and no mucosal ulcerations/no oral thrush; normal hard and soft palate. Normal external ears. Neck: Trachea midline; supple, no thyromegaly or lymphadenopathy Lungs: LLL crackles CV: RRR Abdomen: Soft, non-tender; no masses or hepatosplenomegaly Extremities: no edema Skin: Normal temperature, turgor and texture; no rash, ulcers or subcutaneous nodules Psych: Appropriate affect, alert and oriented to person, place and time. Neuro: alert and oriented x 3. Moving all extermities - Constitutional Vitals: Vital Signs Temp Pulse Resp BP Pulse Ox 98.7 F 61 20 177/99 97 09/03/18 05:17 09/03/18 10:38 09/03/18 05:17 09/03/18 10:38 09/03/18 05:17 Temperature -Last 24 Hours Temperature 98.7 F Temperature 102.8 F Temperature 101.7 F Temperature 102.9 F Temperature 101.2 F Temperature 98.5 F Results - Labs CBC & Chem 7: 09/03/18 07:07 09/03/18 07:07 Labs: Abnormal lab results 09/02/18 09/02/18 09/03/18 Range/Units 09:53 18:15 07:07 MCHC 35 H (32-34) % Plt Count 124 L 117 L (140-440) K/mm3 [place] % (Auto) 12.1 H (0.0-7.3) % Lymph # 1.0 L (1.2-5.4) K/mm3 Seg Neutrophils % 73.8 H (40.0-70.0) % Seg Neuts % (Manual) 91.0 H (40.0-70.0) % Lymphocytes % (Manual) 3.0 L (13.4-35.0) % Lymphocytes # (Manual) 0.2 L (1.2-5.4) K/mm3 D-Dimer 403.92 H (0-234) ng/mlDDU Sodium (137-145) mmol/L Potassium (3.6-5.0) mmol/L Chloride (98-107) mmol/L Glucose (75-100) mg/dL AST (5-40) units/L Albumin (3.9-5) g/dL 09/03/18 Range/Units 07:07 MCHC (32-34) % Plt Count (140-440) K/mm3 [place] % (Auto) (0.0-7.3) % Lymph # (1.2-5.4) K/mm3 Seg Neutrophils % (40.0-70.0) % Seg Neuts % (Manual) (40.0-70.0) % Lymphocytes % (Manual) (13.4-35.0) % Lymphocytes # (Manual) (1.2-5.4) K/mm3 D-Dimer (0-234) ng/mlDDU Sodium 134 L (137-145) mmol/L Potassium 3.3 L (3.6-5.0) mmol/L Chloride 95.9 L (98-107) mmol/L Glucose 109 H (75-100) mg/dL AST 41 H (5-40) units/L Albumin 3.8 L (3.9-5) g/dL Assessment and Plan Cultures: Blood cultures 09/02/2018 no growth so far. Urine cultures 09/02/2018 no growth so far Assessment: 48 y/o male with history of hypertension admitted on 09/02/2018 due to 3-day history of bitemporal severe headache and fever. Patient reports he came to the ED twice for same symptoms and sent home on oral antibiotic and steroid therapy for Pneumonia/Bronchitis. CT abdomen done in the ED 09/01/2018 showed LLL pneumonia with air bronchograms. He reports he went to [place], [place] on 08/15/2018 and stayed in a beach house where he was exposed to "bed bugs". He also reports he has been bit by multiple mosquitoes since weather turned hot in [place]: 1) Fever: Present on admission, likely due to pneumonia. No evidence of meningitis. CSF showed wbc 2, glucose 89, protein 39. Blood cultures 09/02/2018 no growth so far. UA negative. 2) LLL pneumonia: patient with recent travels and acute headache and fever with mild cough. Noted mild hyponatremia, elevated CPK and low platelets. CT abdomen done in the ED 09/01/2018 showed LLL pneumonia with air bronchograms. CXR showed Left lung infiltrate consistent with pneumonia. DDx: post-influenza pneumonia, Legionnaire disease, Mycoplasma, Chlamydia, Strep pneumoniae. Other possibilities ? tick related infection as high fever, thrombocytopenia, headache and patient has been outdoors recently but martinez not recall tick bite. 3) Thrombocytopenia ?unclear influenza pneumonia, Legionnaire disease, Mycoplasma, tick related infection Recommendations: - check CT chest eval for empyema / lung abscess - follow-up blood cultures - start ceftriaxone 2 gm IV qday - start levaquin 750 mg IV q day - start doxycycline 100 mg PO BID to cover tick bite related infection and post influenza MRSA - check influenza rapid and PCR - check urine legionella antigen and urine strep pneumoniae antigen - add tamiflu - stop acyclovir - CSF not consistent with meningitis - check viral hepatitis serology Will follow. Lauren Perez MD Infectious Diseases Tank Farm Operator [facility] M [phone] O [phone]
[2018-09-03] MEDS ORDERED: ROCEPHIN/NS 2 GM/100 ML 2 GM/100 ML BAG IV SCH (12:00)
[2018-09-03] MEDS: TAMIFLU PO SCH ×2 (13:13→22:40)
[2018-09-03] MEDS: LEVAQUIN 750MG/150ML 750 MG/150 ML BAG IV SCH (13:13)
--- NOTE | 2018-09-03 13:22 | Progress Note ---
Assessment and Plan Assessment and plan: 48-year-old male past medical history significant for hypertension was presented to the emergency department with complaints of headache and fever. Patient was in the ER 2 days ago for the same complaints and was given antibiotics and steroids without improvement. Patient was evaluated by ID. Pneumonia, possibly mycoplasma, post influenza - Patient is on IV antibiotics - Patient still has fever. - Patient is on Tamiflu - We'll get CT of the chest Patient has been in outdoors even though he doesn't recall any tick bite - Patient is on doxycycline empirically Hypertensive urgency - Patient restarted back on his home medications and added amlodipine DVT prophylaxis -On Lovenox Disposition - Continue inpatient care History Interval history: Patient was seen and evaluated this morning, patient is still complaining bitemporal headache and nausea but denied neck stiffness. Hospitalist Physical - Physical exam Narrative exam: Not in cardiopulmonary distress. The patient appeared well nourished and normally developed. Vital signs as documented. Head exam is unremarkable. No scleral icterus . Neck is without jugular venous distension, thyromegaly, or carotid bruits. Lungs are clear to auscultation. Cardiac exam reveals regular rate and Rhythm. Abdominal exam reveals normal bowel sounds. Extremities are nonedematous. SHIPPING CLERK/ADMIN: Alert and oriented 3. No focal weakness. - Constitutional Vitals: Temp Pulse Resp BP Pulse Ox 99.2 F 75 20 170/98 94 09/03/18 12:50 09/03/18 12:50 09/03/18 12:50 09/03/18 12:50 09/03/18 12:50 General appearance: Present: mild distress Results - Labs CBC & Chem 7: 09/03/18 07:07 09/03/18 07:07 Labs: Laboratory Last Values WBC 7.0 K/mm3 (4.5-11.0) 09/03/18 07:07 RBC 4.49 M/mm3 (3.65-5.03) 09/03/18 07:07 Hgb 13.9 gm/dl (11.8-15.2) 09/03/18 07:07 Hct 40.0 % (35.5-45.6) 09/03/18 07:07 MCV 89 fl (84-94) 09/03/18 07:07 MCH 31 pg (28-32) 09/03/18 07:07 MCHC 35 % (32-34) H 09/03/18 07:07 RDW 14.3 % (13.2-15.2) 09/03/18 07:07 Plt Count 117 K/mm3 (140-440) L 09/03/18 07:07 Lymph % (Auto) 13.7 % (13.4-35.0) 09/03/18 07:07 [place] % (Auto) 12.1 % (0.0-7.3) H 09/03/18 07:07 Eos % (Auto) 0.2 % (0.0-4.3) 09/03/18 07:07 Baso % (Auto) 0.2 % (0.0-1.8) 09/03/18 07:07 Lymph # 1.0 K/mm3 (1.2-5.4) L 09/03/18 07:07 [place] # 0.8 K/mm3 (0.0-0.8) 09/03/18 07:07 Eos # 0.0 K/mm3 (0.0-0.4) 09/03/18 07:07 Baso # 0.0 K/mm3 (0.0-0.1) 09/03/18 07:07 Add Manual Diff Complete 09/02/18 09:53 Total Counted 100 09/02/18 09:53 Seg Neutrophils % 73.8 % (40.0-70.0) H 09/03/18 07:07 Seg Neuts % (Manual) 91.0 % (40.0-70.0) H 09/02/18 09:53 2.0 % 09/02/18 09:53 3.0 % (13.4-35.0) L 09/02/18 09:53 Reactive Lymphs % (Man) 0 % 09/02/18 09:53 4.0 % (0.0-7.3) 09/02/18 09:53 0 % (0.0-4.3) 09/02/18 09:53 0 % (0.0-1.8) 09/02/18 09:53 0 % 09/02/18 09:53 0 % 09/02/18 09:53 0 % 09/02/18 09:53 0 % 09/02/18 09:53 Nucleated RBC % Not Reportable 09/02/18 09:53 Seg Neutrophils # 5.2 K/mm3 (1.8-7.7) 09/03/18 07:07 Seg Neutrophils # Man 6.8 K/mm3 (1.8-7.7) 09/02/18 09:53 Band Neutrophils # 0.2 K/mm3 09/02/18 09:53 0.2 K/mm3 (1.2-5.4) L 09/02/18 09:53 Abs React Lymphs (Man) 0.0 K/mm3 09/02/18 09:53 0.3 K/mm3 (0.0-0.8) 09/02/18 09:53 0.0 K/mm3 (0.0-0.4) 09/02/18 09:53 0.0 K/mm3 (0.0-0.1) 09/02/18 09:53 0.0 K/mm3 09/02/18 09:53 0.0 K/mm3 09/02/18 09:53 0.0 K/mm3 09/02/18 09:53 Blast Cells # 0.0 K/mm3 09/02/18 09:53 WBC Morphology Not Reportable 09/02/18 09:53 Hypersegmented Neuts Not Reportable 09/02/18 09:53 Hyposegmented Neuts Not Reportable 09/02/18 09:53 Hypogranular Neuts Not Reportable 09/02/18 09:53 Not Reportable 09/02/18 09:53 Not Reportable 09/02/18 09:53 Not Reportable 09/02/18 09:53 Not Reportable 09/02/18 09:53 Not Reportable 09/02/18 09:53 Not Reportable 09/02/18 09:53 Consistent w auto 09/02/18 09:53 Not Reportable 09/02/18 09:53 Plt Clumps, EDTA Not Reportable 09/02/18 09:53 2+ 09/02/18 09:53 Not Reportable 09/02/18 09:53 Not Reportable 09/02/18 09:53 Plt Morphology Comment Not Reportable 09/02/18 09:53 RBC Morphology Normal 09/02/18 09:53 Dimorphic RBCs Not Reportable 09/02/18 09:53 Not Reportable 09/02/18 09:53 Not Reportable 09/02/18 09:53 Not Reportable 09/02/18 09:53 Not Reportable 09/02/18 09:53 Not Reportable 09/02/18 09:53 Not Reportable 09/02/18 09:53 Not Reportable 09/02/18 09:53 Not Reportable 09/02/18 09:53 Not Reportable 09/02/18 09:53 Not Reportable 09/02/18 09:53 Not Reportable 09/02/18 09:53 Not Reportable 09/02/18 09:53 Not Reportable 09/02/18 09:53 Not Reportable 09/02/18 09:53 Not Reportable 09/02/18 09:53 Not Reportable 09/02/18 09:53 Not Reportable 09/02/18 09:53 Not Reportable 09/02/18 09:53 Not Reportable 09/02/18 09:53 Acanthocytes (Spur) Not Reportable 09/02/18 09:53 Rouleaux Not Reportable 09/02/18 09:53 Not Reportable 09/02/18 09:53 Not Reportable 09/02/18 09:53 Not Reportable 09/02/18 09:53 Not Reportable 09/02/18 09:53 Hem Pathologist Commnt No 09/02/18 09:53 PT 15.4 Sec. (12.2-14.9) H 09/02/18 09:03 INR 1.15 (0.87-1.13) H 09/02/18 09:03 APTT 25.4 Sec. (24.2-36.6) 09/02/18 09:03 403.92 ng/mlDDU (0-234) H 09/02/18 18:15 VBG pH 7.396 (7.320-7.420) 09/02/18 09:53 Sodium 134 mmol/L (137-145) L 09/03/18 07:07 Potassium 3.3 mmol/L (3.6-5.0) L 09/03/18 07:07 Chloride 95.9 mmol/L (98-107) L 09/03/18 07:07 Carbon Dioxide 27 mmol/L (22-30) 09/03/18 07:07 14 mmol/L 09/03/18 07:07 BUN 15 mg/dL (9-20) 09/03/18 07:07 1.1 mg/dL (0.8-1.5) 09/03/18 07:07 Estimated GFR > 60 ml/min 09/03/18 07:07 14 % 09/03/18 07:07 Glucose 109 mg/dL (75-100) H 09/03/18 07:07 Lactic Acid 1.90 mmol/L (0.7-2.0) 09/02/18 16:10 Calcium 8.6 mg/dL (8.4-10.2) 09/03/18 07:07 Magnesium 2.00 mg/dL (1.7-2.3) 09/02/18 09:03 0.40 mg/dL (0.1-1.2) 09/03/18 07:07 0.2 mg/dL (0-0.2) 09/02/18 09:03 0.4 mg/dL 09/02/18 09:03 AST 41 units/L (5-40) H 09/03/18 07:07 ALT 53 units/L (7-56) 09/03/18 07:07 58 units/L (35-129) 09/03/18 07:07 295 units/L (55-170) H 09/02/18 09:03 CK-MB (CK-2) 2.0 ng/mL (0.0-4.0) 09/02/18 09:03 CK-MB (CK-2) Rel Index 0.6 (0-4) 09/02/18 09:03 12.50 mg/dL (0.00-1.30) H 09/03/18 07:07 NT-Pro-B Natriuret Pep 362.6 pg/mL (0-450) 09/02/18 09:03 7.0 g/dL (6.3-8.2) 09/03/18 07:07 3.8 g/dL (3.9-5) L 09/03/18 07:07 1.2 % 09/03/18 07:07 Yellow (Yellow) 09/02/18 Unknown Hazy (Clear) 09/02/18 Unknown 6.0 (5.0-7.0) 09/02/18 Unknown Ur Specific [place] 1.023 (1.003-1.030) 09/02/18 Unknown 30 mg/dl mg/dL (Negative) 09/02/18 Unknown Neg mg/dL (Negative) 09/02/18 Unknown Neg mg/dL (Negative) 09/02/18 Unknown Sm (Negative) 09/02/18 Unknown Neg (Negative) 09/02/18 Unknown Neg (Negative) 09/02/18 Unknown < 2.0 mg/dL (<2.0) 09/02/18 Unknown Ur Leukocyte Esterase Tr (Negative) 09/02/18 Unknown 3.0 /HPF (0.0-6.0) 09/02/18 Unknown 3.0 /HPF (0.0-6.0) 09/02/18 Unknown Clear 09/02/18 12:15 Colorless 09/02/18 12:15 2 /mm3 (1-10) 09/02/18 12:15 1 /mm3 (0-0) 09/02/18 12:15 51.1 % (40-80) 09/02/18 12:15 CSF Reactive Lymphs 13.3 % 09/02/18 12:15 35.6 % (15-45) 09/02/18 12:15 C 09/02/18 12:15 89 mg/dL 09/02/18 12:15 39 mg/dL 09/02/18 12:15 HIV 1&2 Antibody Rapid Non react (Non React) 09/02/18 16:10 Non react (Non React) 09/02/18 16:10 Active Medications - Current Medications Current Medications: Generic Name Dose Route Start Last Admin Trade Name Freq PRN Reason Stop Dose Admin Acetaminophen 650 mg 09/02/18 12:35 09/03/18 04:06 Tylenol PO 650 mg Q4H PRN Administration Pain MILD(1-3)/Fever >100.5/LING Albuterol 2.5 mg 09/02/18 12:35 Proventil IH Q4HRT PRN Shortness Of Breath Amlodipine Besylate 10 mg 09/03/18 10:00 09/03/18 10:38 Norvasc PO 10 mg DAILY KAYLA Administration Carvedilol 6.25 mg 09/02/18 22:00 09/03/18 10:38 Coreg PO 6.25 mg BID KAYLA Administration Doxycycline Hyclate 100 mg 09/03/18 12:00 Vibramycin PO BID KAYLA Enoxaparin Sodium 40 mg 09/03/18 22:00 Lovenox SUB-Q QDAY@2200 KAYLA Famotidine 20 mg 09/03/18 14:00 Pepcid PO BID KAYLA Hydralazine HCl 10 mg 09/02/18 17:38 Apresoline IV Q6HR PRN HTN SBP>155 Sodium Chloride 1,000 mls @ 42 mls/hr 09/02/18 18:00 09/02/18 22:48 Nacl 0.9% 1000 Ml IV 42 mls/hr DIRECT KAYLA Infusion Ceftriaxone Sodium 2 gm in 100 mls @ 200 mls/hr 09/03/18 12:00 Rocephin/Ns 2 Gm/100 Ml IV Q24HR [facility] Protocol Levofloxacin/Dextrose 750 mg in 150 mls @ 100 mls/hr 09/03/18 12:00 09/03/18 13:13 Levaquin 750mg/150ml IV 100 mls/hr Q24HR KAYLA Administration Protocol Ibuprofen 600 mg 09/02/18 17:41 Motrin PO Q8H PRN Pain Losartan Potassium 100 mg 09/03/18 10:00 09/03/18 10:38 Cozaar PO 100 mg QDAY KAYLA Administration Morphine Sulfate 2 mg 09/02/18 22:42 09/02/18 23:11 Morphine IV 09/03/18 23:59 2 mg Q4H PRN Administration Pain, Moderate (4-6) Ondansetron HCl 4 mg 09/02/18 17:19 09/03/18 10:37 Zofran IV 4 mg Q6H PRN Administration Nausea And Vomiting Oseltamivir Phosphate 75 mg 09/03/18 12:00 09/03/18 13:13 Tamiflu PO 09/07/18 22:01 75 mg BID KAYLA Administration Oxycodone/Acetaminophen 1 tab 09/02/18 17:18 Percocet 5/325 PO Q6H PRN Pain, Moderate (4-6) Promethazine HCl 25 mg 09/02/18 22:43 Phenergan ND 09/03/18 23:59 Q6H PRN Nausea And Vomiting Sodium Chloride 10 ml 09/02/18 22:00 09/03/18 10:39 Sodium Chloride Flush Syringe 10 Ml IV 10 ml BID KAYLA Administration Sodium Chloride 10 ml 09/02/18 12:35 Sodium Chloride Flush Syringe 10 Ml IV PRN PRN LINE FLUSH
[2018-09-03] MEDS: VIBRAMYCIN PO SCH ×2 (14:01→22:40)
[2018-09-03] MEDS: PEPCID PO SCH ×2 (14:01→22:40)
[2018-09-03] MEDS ORDERED: XANAX PO ONE (14:10)
--- NOTE | 2018-09-03 14:22 | Cat Scan Report ---
CT CHEST WITH CONTRAST: HISTORY: Severe sepsis with left pneumonia, evaluate. COMPARISON: AP chest performed 08/2618. TECHNIQUE: Helical CT in 1.25mm intervals following IV contrast. Sagittal and coronal reformatted images. FINDINGS: Thyroid gland: Normal. Tracheobronchial tree: Normal. Esophagus: Normal. Heart: Normal. Pericardium: Normal. Mediastinum: Normal. Lung Zepeda: There is moderate infiltrates throughout the left lower lobe. The remainder of the lungs are clear. No underlying parenchymal lung disease is appreciated. Pleural Spaces: Trace left pleural effusion. Musculoskeletal: Intact. Limited images of the upper abdomen demonstrate moderate diffuse fatty infiltration throughout the liver. IMPRESSION: Left lower lobe pneumonia. Trace left pleural effusion. Hepatic steatosis.
[2018-09-03] MEDS: ROCEPHIN/NS 2 GM/100 ML 2 GM/100 ML BAG IV SCH (15:36)
[2018-09-03] MEDS: LOVENOX SUB-Q SCH (22:41)
[2018-09-04] MEDS: NACL 0.9% 1000 ML 1,000 ML IV SCH (07:27)
[2018-09-04 08:58] LABS: Basophils % (Auto) 0.2 % (0.0-1.8); Eosinophils # (Auto) 0.2 K/mm3 (0.0-0.4); Eosinophils % (Auto) 2.7 % (0.0-4.3); Hematocrit 44.3 % (35.5-45.6); Hemoglobin 14.9 gm/dl (11.8-15.2); Lymphocytes # (Auto) 0.8 K/mm3 (1.2-5.4); Lymphocytes % (Auto) 11.5 % (13.4-35.0); Mean Corpuscular HGB Conc 34 % (32-34); Mean Corpuscular Volume 90 fl (84-94); Monocytes % (Auto) 14.7 % (0.0-7.3); Red Blood Count 4.89 M/mm3 (3.65-5.03); Red Cell Distribution Width 14.1 % (13.2-15.2)
[2018-09-04 08:59] LABS: Platelet Count 131 K/mm3 (140-440)
[2018-09-04 09:18] LABS: BUN/Creatinine Ratio 16; Blood Urea Nitrogen 14 mg/dL (9-20); Calcium 8.8 mg/dL (8.4-10.2); Hemolysis Index 19
--- NOTE | 2018-09-04 09:18 | Progress Note ---
Assessment and Plan Cultures: Blood cultures 09/02/2018 no growth so far. Urine cultures 09/02/2018 no growth so far Cryptococcal antigen 09/02/18; negative Assessment: 48 y/o male with history of hypertension admitted on 09/02/2018 due to 3-day history of bitemporal severe headache and fever. Patient reports he came to the ED twice for same symptoms and sent home on oral antibiotic and steroid therapy for Pneumonia/Bronchitis. CT abdomen done in the ED 09/01/2018 showed LLL pneumonia with air bronchograms. He reports he went to [place], [place] on 08/15/2018 and stayed in a beach house where he was exposed to "bed bugs". He also reports he has been bit by multiple mosquitoes since weather turned hot in [facility] ia: 1) Fever: Resolved. likely due to pneumonia. No evidence of meningitis. CSF showed wbc 2, glucose 89, protein 39. Blood cultures 09/02/2018 no growth so far. UA negative. Last fever 09/03. HIV non reactive. Influenza negative. 2) LLL pneumonia: patient with recent travels and acute headache and fever with mild cough. Noted mild hyponatremia, elevated CPK and low platelets. CT abdomen done in the ED 09/01/2018 showed LLL pneumonia with air bronchograms. CXR showed Left lung infiltrate consistent with pneumonia. Chest CT shows Left lower lobe pneumonia. Trace left pleural effusion. Hepatic steatosis. DDx: post-influenza pneumonia,Legionnaire disease, Mycoplasma, Chlamydia, Strep pneumoniae. Other possibilities ? tick related infection as high fever, thrombocytopenia, headache and patient has been outdoors recently but does not recall tick bite. 3) Thrombocytopenia ?unclear influenza pneumonia, Legionnaire disease, Mycoplasma, tick related infection Recommendations: - follow-up blood cultures - continue ceftriaxone 2 gm IV qday, D2 - switch to Levaquin 750 mg po q day, D2 - continue doxycycline 100 mg PO BID to cover tick bite related infection and post influenza MRSA, D2 - follow-up urine legionella antigen and urine strep pneumoniae antigen - follow-up viral hepatitis serology -Anticipate discharge on Levaquin 750mg PO q day for total 7 days ending 09-09-18 and Doxycycline 100mg PO BID total 10 days ending 09-12-18 [facility] M: [phone] O:[phone] Subjective Date of service: 09/04/18 Interval history: Patient seen and examined. Sitting up in bed. Reports no generalized pain or SOB. No fevers. Objective - Exam Narrative Exam: General appearance: Alert in NAD pleasant Eyes: anicteric sclerae, moist conjunctivae; no lid-lag; PERRLA HENT: Atraumatic; oropharynx clear with moist mucous membranes and no mucosal ulcerations/no oral thrush; normal hard and soft palate. Normal external ears. Neck: Trachea midline; supple, no thyromegaly or lymphadenopathy Lungs: LLL crackles CV: RRR Abdomen: Soft, non-tender; no masses or hepatosplenomegaly Extremities: no edema Skin: Normal temperature, turgor and texture; no rash, ulcers or subcutaneous nodules Psych: Appropriate affect, alert and oriented to person, place and time. Neuro: alert and oriented x 3. Moving all extermities - Constitutional Vitals: Vital Signs Temp Pulse Resp BP Pulse Ox 99.2 F 54 L 20 168/92 98 09/04/18 04:59 09/04/18 04:59 09/04/18 04:59 09/04/18 04:59 09/04/18 04:59 Temperature -Last 24 Hours Temperature 99.2 F Temperature 99.4 F Temperature 99.3 F Temperature 100.2 F Temperature 99.2 F - Labs CBC & Chem 7: 09/04/18 08:12 09/04/18 08:12 Labs: Abnormal lab results 09/03/18 09/04/18 Range/Units 07:07 08:12 Plt Count 131 L (140-440) K/mm3 Lymph % (Auto) 11.5 L (13.4-35.0) % [place] % (Auto) 14.7 H (0.0-7.3) % Lymph # 0.8 L (1.2-5.4) K/mm3 [place] # 1.0 H (0.0-0.8) K/mm3 Seg Neutrophils % 70.9 H (40.0-70.0) % C-Reactive Protein 12.50 H (0.00-1.30) mg/dL
[2018-09-04] MEDS: ROCEPHIN/NS 2 GM/100 ML 2 GM/100 ML BAG IV SCH (10:51)
[2018-09-04] MEDS: COZAAR PO SCH (10:51)
[2018-09-04] MEDS: LEVAQUIN 750MG/150ML 750 MG/150 ML BAG IV SCH (10:51)
[2018-09-04] MEDS: NORVASC PO SCH (10:52)
[2018-09-04] MEDS: COREG PO SCH ×2 (10:52→23:28)
[2018-09-04] MEDS: VIBRAMYCIN PO SCH ×2 (10:52→23:28)
[2018-09-04] MEDS: TAMIFLU PO SCH (10:52)
[2018-09-04] MEDS: PEPCID PO SCH ×2 (10:52→23:29)
[2018-09-04] MEDS: TYLENOL PO PRN ×2 (11:03→23:36)
--- NOTE | 2018-09-04 15:12 | Progress Note ---
Assessment and Plan Assessment and plan: 48-year-old male past medical history significant for hypertension was presented to the emergency department with complaints of headache and fever. Patient was in the ER 2 days ago for the same complaints and was given antibiotics and steroids without improvement. Patient was evaluated by ID. Pneumonia, possibly mycoplasma, post influenza - Patient is on IV antibiotics - Patient's fever subsided - Patient is on Tamiflu - We'll get CT of the chest Patient has been in outdoors even though he doesn't recall any tick bite - Patient is on doxycycline empirically Hypertensive urgency - Patient restarted back on his home medications and added amlodipine DVT prophylaxis -On Lovenox Disposition - Continue inpatient care History Interval history: Patient was seen and evaluated this morning, patient is still complaining headache and abdominal pain. Hospitalist Physical - Physical exam Narrative exam: Not in cardiopulmonary distress. The patient appeared well nourished and normally developed. Vital signs as documented. Head exam is unremarkable. No scleral icterus . Neck is without jugular venous distension, thyromegaly, or carotid bruits. Lungs are clear to auscultation. Cardiac exam reveals regular rate and Rhythm. Abdominal exam reveals normal bowel sounds. Extremities are nonedematous. COMPOUNDING SCALER: Alert and oriented 3. No focal weakness. - Constitutional Vitals: Temp Pulse Resp BP Pulse Ox 98.8 F 70 16 153/88 94 09/04/18 12:28 09/04/18 12:28 09/04/18 12:28 09/04/18 12:28 09/04/18 12:28 General appearance: Present: mild distress Results - Labs CBC & Chem 7: 09/04/18 08:12 09/04/18 08:12 Labs: Laboratory Last Values WBC 7.1 K/mm3 (4.5-11.0) 09/04/18 08:12 RBC 4.89 M/mm3 (3.65-5.03) 09/04/18 08:12 Hgb 14.9 gm/dl (11.8-15.2) 09/04/18 08:12 Hct 44.3 % (35.5-45.6) 09/04/18 08:12 MCV 90 fl (84-94) 09/04/18 08:12 MCH 30 pg (28-32) 09/04/18 08:12 MCHC 34 % (32-34) 09/04/18 08:12 RDW 14.1 % (13.2-15.2) 09/04/18 08:12 Plt Count 131 K/mm3 (140-440) L 09/04/18 08:12 Lymph % (Auto) 11.5 % (13.4-35.0) L 09/04/18 08:12 [place] % (Auto) 14.7 % (0.0-7.3) H 09/04/18 08:12 Eos % (Auto) 2.7 % (0.0-4.3) 09/04/18 08:12 Baso % (Auto) 0.2 % (0.0-1.8) 09/04/18 08:12 Lymph # 0.8 K/mm3 (1.2-5.4) L 09/04/18 08:12 [place] # 1.0 K/mm3 (0.0-0.8) H 09/04/18 08:12 Eos # 0.2 K/mm3 (0.0-0.4) 09/04/18 08:12 Baso # 0.0 K/mm3 (0.0-0.1) 09/04/18 08:12 Add Manual Diff Complete 09/02/18 09:53 Total Counted 100 09/02/18 09:53 Seg Neutrophils % 70.9 % (40.0-70.0) H 09/04/18 08:12 Seg Neuts % (Manual) 91.0 % (40.0-70.0) H 09/02/18 09:53 2.0 % 09/02/18 09:53 3.0 % (13.4-35.0) L 09/02/18 09:53 Reactive Lymphs % (Man) 0 % 09/02/18 09:53 4.0 % (0.0-7.3) 09/02/18 09:53 0 % (0.0-4.3) 09/02/18 09:53 0 % (0.0-1.8) 09/02/18 09:53 0 % 09/02/18 09:53 0 % 09/02/18 09:53 0 % 09/02/18 09:53 0 % 09/02/18 09:53 Nucleated RBC % Not Reportable 09/02/18 09:53 Seg Neutrophils # 5.0 K/mm3 (1.8-7.7) 09/04/18 08:12 Seg Neutrophils # Man 6.8 K/mm3 (1.8-7.7) 09/02/18 09:53 Band Neutrophils # 0.2 K/mm3 09/02/18 09:53 0.2 K/mm3 (1.2-5.4) L 09/02/18 09:53 Abs React Lymphs (Man) 0.0 K/mm3 09/02/18 09:53 0.3 K/mm3 (0.0-0.8) 09/02/18 09:53 0.0 K/mm3 (0.0-0.4) 09/02/18 09:53 0.0 K/mm3 (0.0-0.1) 09/02/18 09:53 0.0 K/mm3 09/02/18 09:53 0.0 K/mm3 09/02/18 09:53 0.0 K/mm3 09/02/18 09:53 Blast Cells # 0.0 K/mm3 09/02/18 09:53 WBC Morphology Not Reportable 09/02/18 09:53 Hypersegmented Neuts Not Reportable 09/02/18 09:53 Hyposegmented Neuts Not Reportable 09/02/18 09:53 Hypogranular Neuts Not Reportable 09/02/18 09:53 Not Reportable 09/02/18 09:53 Not Reportable 09/02/18 09:53 Not Reportable 09/02/18 09:53 Not Reportable 09/02/18 09:53 Not Reportable 09/02/18 09:53 Not Reportable 09/02/18 09:53 Consistent w auto 09/02/18 09:53 Not Reportable 09/02/18 09:53 Plt Clumps, EDTA Not Reportable 09/02/18 09:53 2+ 09/02/18 09:53 Not Reportable 09/02/18 09:53 Not Reportable 09/02/18 09:53 Plt Morphology Comment Not Reportable 09/02/18 09:53 RBC Morphology Normal 09/02/18 09:53 Dimorphic RBCs Not Reportable 09/02/18 09:53 Not Reportable 09/02/18 09:53 Not Reportable 09/02/18 09:53 Not Reportable 09/02/18 09:53 Not Reportable 09/02/18 09:53 Not Reportable 09/02/18 09:53 Not Reportable 09/02/18 09:53 Not Reportable 09/02/18 09:53 Not Reportable 09/02/18 09:53 Not Reportable 09/02/18 09:53 Not Reportable 09/02/18 09:53 Not Reportable 09/02/18 09:53 Not Reportable 09/02/18 09:53 Not Reportable 09/02/18 09:53 Not Reportable 09/02/18 09:53 Not Reportable 09/02/18 09:53 Not Reportable 09/02/18 09:53 Not Reportable 09/02/18 09:53 Not Reportable 09/02/18 09:53 Not Reportable 09/02/18 09:53 Acanthocytes (Spur) Not Reportable 09/02/18 09:53 Rouleaux Not Reportable 09/02/18 09:53 Not Reportable 09/02/18 09:53 Not Reportable 09/02/18 09:53 Not Reportable 09/02/18 09:53 Not Reportable 09/02/18 09:53 Hem Pathologist Commnt No 09/02/18 09:53 PT 15.4 Sec. (12.2-14.9) H 09/02/18 09:03 INR 1.15 (0.87-1.13) H 09/02/18 09:03 APTT 25.4 Sec. (24.2-36.6) 09/02/18 09:03 403.92 ng/mlDDU (0-234) H 09/02/18 18:15 VBG pH 7.396 (7.320-7.420) 09/02/18 09:53 Sodium 138 mmol/L (137-145) 09/04/18 08:12 Potassium 3.7 mmol/L (3.6-5.0) 09/04/18 08:12 Chloride 96.8 mmol/L (98-107) L 09/04/18 08:12 Carbon Dioxide 27 mmol/L (22-30) 09/04/18 08:12 18 mmol/L 09/04/18 08:12 BUN 14 mg/dL (9-20) 09/04/18 08:12 0.9 mg/dL (0.8-1.5) 09/04/18 08:12 Estimated GFR > 60 ml/min 09/04/18 08:12 16 % 09/04/18 08:12 Glucose 111 mg/dL (75-100) H 09/04/18 08:12 Lactic Acid 1.90 mmol/L (0.7-2.0) 09/02/18 16:10 Calcium 8.8 mg/dL (8.4-10.2) 09/04/18 08:12 Magnesium 2.00 mg/dL (1.7-2.3) 09/02/18 09:03 0.40 mg/dL (0.1-1.2) 09/03/18 07:07 0.2 mg/dL (0-0.2) 09/02/18 09:03 0.4 mg/dL 09/02/18 09:03 AST 41 units/L (5-40) H 09/03/18 07:07 ALT 53 units/L (7-56) 09/03/18 07:07 58 units/L (35-129) 09/03/18 07:07 295 units/L (55-170) H 09/02/18 09:03 CK-MB (CK-2) 2.0 ng/mL (0.0-4.0) 09/02/18 09:03 CK-MB (CK-2) Rel Index 0.6 (0-4) 09/02/18 09:03 12.50 mg/dL (0.00-1.30) H 09/03/18 07:07 NT-Pro-B Natriuret Pep 362.6 pg/mL (0-450) 09/02/18 09:03 7.0 g/dL (6.3-8.2) 09/03/18 07:07 3.8 g/dL (3.9-5) L 09/03/18 07:07 1.2 % 09/03/18 07:07 Yellow (Yellow) 09/02/18 Unknown Hazy (Clear) 09/02/18 Unknown 6.0 (5.0-7.0) 09/02/18 Unknown Ur Specific [place] 1.023 (1.003-1.030) 09/02/18 Unknown 30 mg/dl mg/dL (Negative) 09/02/18 Unknown Neg mg/dL (Negative) 09/02/18 Unknown Neg mg/dL (Negative) 09/02/18 Unknown Sm (Negative) 09/02/18 Unknown Neg (Negative) 09/02/18 Unknown Neg (Negative) 09/02/18 Unknown < 2.0 mg/dL (<2.0) 09/02/18 Unknown Ur Leukocyte Esterase Tr (Negative) 09/02/18 Unknown 3.0 /HPF (0.0-6.0) 09/02/18 Unknown 3.0 /HPF (0.0-6.0) 09/02/18 Unknown Clear 09/02/18 12:15 Colorless 09/02/18 12:15 2 /mm3 (1-10) 09/02/18 12:15 1 /mm3 (0-0) 09/02/18 12:15 51.1 % (40-80) 09/02/18 12:15 CSF Reactive Lymphs 13.3 % 09/02/18 12:15 35.6 % (15-45) 09/02/18 12:15 C 09/02/18 12:15 89 mg/dL 09/02/18 12:15 39 mg/dL 09/02/18 12:15 Nonreactive (Nonreactive) 09/02/18 12:15 HIV 1&2 Antibody Rapid Non react (Non React) 09/02/18 16:10 Non react (Non React) 09/02/18 16:10 Influenza A (Rapid) Negative (Negative) 09/03/18 13:00 Influenza A (RT-PCR) Negative (Negative) 09/03/18 13:00 Influenza B (Rapid) Negative (Negative) 09/03/18 13:00 Influenza B (RT-PCR) Negative (Negative) 09/03/18 13:00 Active Medications - Current Medications Current Medications: Generic Name Dose Route Start Last Admin Trade Name Freq PRN Reason Stop Dose Admin Acetaminophen 650 mg 09/02/18 12:35 09/04/18 11:03 Tylenol PO 650 mg Q4H PRN Administration Pain MILD(1-3)/Fever >100.5/LING Albuterol 2.5 mg 09/02/18 12:35 Proventil IH Q4HRT PRN Shortness Of Breath Amlodipine Besylate 10 mg 09/03/18 10:00 09/04/18 10:52 Norvasc PO 10 mg DAILY KAYLA Administration Carvedilol 6.25 mg 09/02/18 22:00 09/04/18 10:52 Coreg PO 6.25 mg BID KAYLA Administration Doxycycline Hyclate 100 mg 09/03/18 12:00 09/04/18 10:52 Vibramycin PO 100 mg BID KAYLA Administration Enoxaparin Sodium 40 mg 09/03/18 22:00 09/03/18 22:41 Lovenox SUB-Q 40 mg QDAY@2200 KAYLA Administration Famotidine 20 mg 09/03/18 14:00 09/04/18 10:52 Pepcid PO 20 mg BID KAYLA Administration Hydralazine HCl 10 mg 09/02/18 17:38 09/03/18 19:18 Apresoline IV 10 mg Q6HR PRN Administration HTN SBP>155 Sodium Chloride 1,000 mls @ 42 mls/hr 09/02/18 18:00 09/04/18 07:27 Nacl 0.9% 1000 Ml IV 42 mls/hr DIRECT KAYLA Administration Levofloxacin/Dextrose 750 mg in 150 mls @ 100 mls/hr 09/03/18 12:00 09/04/18 10:51 Levaquin 750mg/150ml IV 100 mls/hr Q24HR KAYLA Administration Protocol Ceftriaxone Sodium 2 gm in 100 mls @ 200 mls/hr 09/03/18 12:00 09/04/18 10:51 Rocephin/Ns 2 Gm/100 Ml IV 200 mls/hr Q24HR KAYLA Administration Ibuprofen 600 mg 09/02/18 17:41 Motrin PO Q8H PRN Pain Losartan Potassium 100 mg 09/03/18 10:00 09/04/18 10:51 Cozaar PO 100 mg QDAY KAYLA Administration Ondansetron HCl 4 mg 09/02/18 17:19 09/03/18 10:37 Zofran IV 4 mg Q6H PRN Administration Nausea And Vomiting Oseltamivir Phosphate 75 mg 09/03/18 12:00 09/04/18 10:52 Tamiflu PO 09/07/18 22:01 75 mg BID KAYLA Administration Oxycodone/Acetaminophen 1 tab 09/02/18 17:18 Percocet 5/325 PO Q6H PRN Pain, Moderate (4-6) Sodium Chloride 10 ml 09/02/18 22:00 09/03/18 22:41 Sodium Chloride Flush Syringe 10 Ml IV 10 ml BID KAYLA Administration Sodium Chloride 10 ml 09/02/18 12:35 Sodium Chloride Flush Syringe 10 Ml IV PRN PRN LINE FLUSH Nutrition/Malnutrition Assess - Dietary Evaluation Nutrition/Malnutrition Findings: Nutrition Notes Start: 09/03/18 17:28 Freq: Status: Active Protocol: Document 09/03/18 17:28 RM (Rec: 09/03/18 17:30 RM [id number]) Nutrition Notes Need for Assessment generated from: MD Order,Education Initial or Follow up Brief Note Subjective/Other Information Consulted for diet education. Pt stated that he is not interested in diet education but his is interested. Pt not present at time of visit. Left handout for HTN diet education. Nutrition Intervention Education Handouts Provided Hypertension Nutrition Therapy Revisit per MD consult or patient Sign Off request:
[2018-09-04] MEDS: REGLAN PO SCH ×2 (18:22→23:28)
[2018-09-04] MEDS: SODIUM CHLORIDE FLUSH SYRINGE 10 ML IV SCH (18:22)
[2018-09-04] MEDS: ZOFRAN IV PRN (21:50)
[2018-09-04] MEDS ORDERED: BENADRYL IV ONE (23:15)
[2018-09-04] MEDS: LOVENOX SUB-Q SCH (23:30)
[2018-09-05 07:21] LABS: Basophils % (Auto) 0.7 % (0.0-1.8); Eosinophils # (Auto) 0.4 K/mm3 (0.0-0.4); Eosinophils % (Auto) 5.9 % (0.0-4.3); Lymphocytes % (Auto) 16.6 % (13.4-35.0); Mean Corpuscular HGB Conc 36 % (32-34); Mean Corpuscular Volume 87 fl (84-94); Monocytes # (Auto) 0.9 K/mm3 (0.0-0.8); Monocytes % (Auto) 15.3 % (0.0-7.3); Platelet Count 149 K/mm3 (140-440); Red Blood Count 4.67 M/mm3 (3.65-5.03); Red Cell Distribution Width 13.6 % (13.2-15.2)
[2018-09-05 07:30] LABS: Hematocrit 40.7 % (35.5-45.6); Hemoglobin 14.6 gm/dl (11.8-15.2)
[2018-09-05 07:35] LABS: BUN/Creatinine Ratio 14; Blood Urea Nitrogen 13 mg/dL (9-20); Calcium 8.8 mg/dL (8.4-10.2); Hemolysis Index 5
[2018-09-05] MEDS: NACL 0.9% 1000 ML 1,000 ML IV SCH (08:39)
[2018-09-05] MEDS: REGLAN PO SCH (08:51)
[2018-09-05] MEDS: VIBRAMYCIN PO SCH (09:04)
[2018-09-05] MEDS: COREG PO SCH (09:04)
[2018-09-05] MEDS: PEPCID PO SCH (09:04)
[2018-09-05] MEDS: NORVASC PO SCH (09:04)
[2018-09-05] MEDS: ROCEPHIN/NS 2 GM/100 ML 2 GM/100 ML BAG IV SCH (09:04)
[2018-09-05] MEDS: COZAAR PO SCH (09:05)
[2018-09-05] MEDS: SODIUM CHLORIDE FLUSH SYRINGE 10 ML IV SCH (09:05)
[2018-09-05] MEDS ORDERED: LEVAQUIN PO SCH (10:00)
--- NOTE | 2018-09-05 11:55 | Discharge Summary ---
Providers - Providers Date of Admission: 09/02/18 12:35 Attending physician: KARRIE SELLERS MD 09/02/18 17:24 Consult to Physician [CONS] Routine Comment: Consulting Provider: ZENAIDA ROGEL Physician Instructions: Reason For Exam: headache/fever 09/02/18 17:41 Consult to Dietitian/Nutrition [CONS] Routine Physician Instructions: Reason For Exam: Reason for Consult: Diet education Primary care physician: VIRAL WEBER Hospitalization Reason for admission: LLL pneumonia, sepsis Condition: Stable Pertinent studies: CT showed LLL infiltrates Hospital course: 48 YO Male with history of HTN presened with complaints of frontotemporal headache and fever over the past 3 days. Pt seen in ED and discharged on 09/01 and discharge with oral antibiotic and steroid therapy for Pneumonia/Bronchitis. Pt returns to ED for reevaluation on the day of admission. Pt stated that he has experienced persistent headache, and fever. Pt found to have fever to 102.7 consistent with SIRS, hypertensive urgency. Patient denied neck stiffness. Patient was admitted to the floor and was started with antibiotics and ID was consulted. CT chest was done and showed that the left lower lobe pneumonia. Patient's symptoms resolved with IV antibiotics. Fever, headache, abdominal pain subsided. Patient discharged home with by mouth antibiotics. Patient is hemodynamically stable at the time of discharge. Disposition: -01 TO HOME OR SELFCARE Time spent for discharge: 34 minutes - Discharge Diagnoses (1) Sepsis Status: Acute (2) PNA (pneumonia) Status: Acute Qualifiers: Pneumonia type: due to unspecified organism Laterality: left Lung location: lower lobe of lung Qualified Code(s): J18.1 - Lobar pneumonia, unspecified organism Core Measure Documentation - Palliative Care Palliative Care/ Comfort Measures: Not Applicable - Core Measures Any of the following diagnoses?: none Exam - Physical Exam Narrative exam: Not in cardiopulmonary distress. The patient appeared well nourished and normally developed. Vital signs as documented. Head exam is unremarkable. No scleral icterus . Neck is without jugular venous distension, thyromegaly, or carotid bruits. Lungs are clear to auscultation. Cardiac exam reveals regular rate and Rhythm. Abdominal exam reveals normal bowel sounds. Extremities are nonedematous. PRINCIPAL QUALITY ENGINEER: Alert and oriented 3. No focal weakness. - Constitutional Vitals: Temp Pulse Resp BP Pulse Ox 98.2 F 54 L 24 156/89 93 09/05/18 04:42 09/05/18 04:42 09/05/18 04:42 09/05/18 04:42 09/05/18 04:42 Plan Activity: no restrictions Weight Bearing Status: Full Weight Bearing Diet: regular Follow up with: VIRAL WEBER MD [Primary Care Provider] - 7 Days Prescriptions: levoFLOXacin [Levaquin TAB] 750 mg PO Q24HR #7 tablet DOXYCYCLINE Hyclate [Vibramycin CAP] 100 mg PO Q12HR #14 capsule
[2018-09-05 12:52] VITALS: BP 142/73
== END 2018-09-05 13:15 | disposition home or self-care (01) | DRG 871 ==
LOC: ED 06:28 → 3A 12:35
PROVIDERS: ADMIT Internal Medicine; ATTEND Internal Medicine
PROC: 009U3ZX Drainage of Spinal Canal, Percutaneous Approach, Diagnostic (ICD-10-PCS; principal; 2018-09-03)
DX: A41.9 Sepsis, unspecified organism (principal); J18.1 Lobar pneumonia, unspecified organism; D69.6 Thrombocytopenia, unspecified; I16.0 Hypertensive urgency; I10 Essential (primary) hypertension; F12.90 Cannabis use, unspecified, uncomplicated; R51 Headache; Z79.899 Other long term (current) drug therapy
CPT/HCPCS: 36415; 70450; 71045; 71260; 80048; 80053; 80076; 81001; 82140; 82550; 82553; 82805; 82947; 83735; 83880; 84160; 85007; 85025; 85379; 85610; 85730; 86140; 86403; 86592; 87040; 87086; 87116; 87400; 87449; 87806; 89051; 93005; 93010; 93306; 96365; 96367; 96375; 96376; G0378; 87502; J0133; J0360; J0696; J1200; J1650; J1956; J2060; J2270; J2405; J2543; J2765; J7030; J7040; Q9967